=== PATIENT | female | born 1960 | race Caucasian/White ===

== ENCOUNTER → 2020-06-20 13:13 | Outpatient (BNVA) | payer OTHER, SELFPAY | PROVIDERS: PCP Family Medicine; Visit Provider Urology | DX: N30.00 Acute cystitis without hematuria (principal); N39.41 Urge incontinence; N39.3 Stress incontinence (female) (male) | CPT/HCPCS: 51798; 81002; 99212 ==

== ENCOUNTER 2020-06-26 13:56 | Outpatient (REF) | payer OTHER, SELFPAY ==
--- NOTE | 2020-06-26 | MM_ITS ---
EXAMINATION: MM SCREENING DIGITAL BREAST TOMOSYNTHESIS, BILATERAL CLINICAL INFORMATION: Screening. Asymptomatic. The lifetime risk of breast cancer based on the Tyrer-Cuzick Model is 5%. COMPARISON: Mammography: 02/15/2019, 01/17/2018, 04/29/2016, 09/13/2012 TECHNIQUE: Digital breast tomosynthesis is performed in both the craniocaudal and mediolateral oblique views along with computer-aided detection (CAD). Synthesized 2D images are generated from the tomosynthesis. FINDINGS: The breasts are heterogeneously dense, which may obscure small masses (ACR BI-RADS breast composition Category c). There are no significant masses, abnormal calcifications, or other abnormalities. There is a chronic smooth macrolobulated nodule retroareolar upper outer left breast again noted. No developing density. No significant changes from prior exams. MM/MM tomosynthesis screening BI IMPRESSION: No significant changes from prior studies. ASSESSMENT: BI-RADS 2: Benign RECOMMENDATION: Routine annual mammography screening. This patient's information was entered into a reminder system with a target due date for their next mammogram.
== END 2020-06-26 13:57 | disposition home or self-care (01) ==
LOC: HO.MAMMO 13:56
PROVIDERS: PCP Family Medicine; Visit Provider Family Medicine
DX: Z12.31 Encounter for screening mammogram for malignant neoplasm of breast (principal)
CPT/HCPCS: 77063; 77067

== ENCOUNTER → 2020-06-27 13:56 | Outpatient (BNVA) | payer OTHER, SELFPAY | PROVIDERS: PCP Family Medicine; Visit Provider Urology | DX: N39.41 Urge incontinence (principal); N39.3 Stress incontinence (female) (male) | CPT/HCPCS: 81002; 99212 ==

== ENCOUNTER 2020-09-10 11:15 | Outpatient (REF) | payer OTHER, SELFPAY ==
[2020-09-10 12:12] LABS: Alanine Aminotransferase 19 U/L (0-31); Anion Gap 12 (12-20); Aspartate Amino Transferase 18 U/L (5-31); Carbon Dioxide 23 mmol/L (22-29); Chloride 99 mmol/L (96-108); Potassium 4.8 mmol/L (3.3-5.1); Sodium 129 mmol/L (135-145)
[2020-09-10 12:34] LABS: Free T4 (Free Thyroxine) 0.94 ng/dL (0.71-1.85); Thyroid Stimulating Hormone 0.51 uIU/mL (0.32-4.0)
[2020-09-10 12:55] LABS: Osmolality, Serum 271 mosm/kg (281-305)
== END 2020-09-10 11:16 | disposition home or self-care (01) ==
LOC: HO.LAB 11:15
PROVIDERS: PCP Family Medicine; Visit Provider Family Medicine
DX: E78.1 Pure hyperglyceridemia (principal); E03.9 Hypothyroidism, unspecified; E78.00 Pure hypercholesterolemia, unspecified; Z79.899 Other long term (current) drug therapy
CPT/HCPCS: 36415; 80051; 82550; 83930; 84439; 84443; 84450; 84460

== ENCOUNTER 2021-01-16 14:59 | Outpatient (REF) | payer OTHER, SELFPAY ==
[2021-01-16 16:00] LABS: Alanine Aminotransferase 15 U/L (0-31); Anion Gap 15 (12-20); Blood Urea Nitrogen 7 mg/dL (9-16); Carbon Dioxide 22 mmol/L (22-29); Chloride 96 mmol/L (96-108); Estimated Glomerular Filt Rate > 60; Potassium 4.5 mmol/L (3.3-5.1); Sodium 128 mmol/L (135-145)
[2021-01-16 16:21] LABS: Free T4 (Free Thyroxine) 1.01 ng/dL (0.71-1.85); Thyroid Stimulating Hormone 1.14 uIU/mL (0.32-4.0)
== END 2021-01-16 15:00 | disposition home or self-care (01) ==
LOC: HO.LAB 14:59
PROVIDERS: PCP Family Medicine; Visit Provider Family Medicine
DX: I10 Essential (primary) hypertension (principal); E03.9 Hypothyroidism, unspecified; E78.00 Pure hypercholesterolemia, unspecified; Z79.899 Other long term (current) drug therapy
CPT/HCPCS: 36415; 80051; 82550; 82565; 84439; 84443; 84460; 84520

== ENCOUNTER 2021-09-26 14:40 | Emergency (ER) | payer OTHER, SELFPAY ==
--- NOTE | ~2021-09-26 | XR_ITS ---
EXAMINATION: XR CHEST CLINICAL INFORMATION: Cough. COMPARISON: Most recent chest radiograph dated 03/13/2019. TECHNIQUE: 2 views of the chest were obtained. FINDINGS: No new airspace consolidation. No pleural effusion or pneumothorax. Stable cardiomediastinal silhouette. Chronic wedge compression deformity within the mid thoracic spine, unchanged when compared to the radiographs from 2019. No acute osseous abnormality. XR/XR chest 2V IMPRESSION: No acute cardiopulmonary findings.
[2021-09-26 14:46] VITALS: BP 130/80; BP 151/89; PULSE 70; RESP 14; TEMP 36.6; O2SAT 95; O2SAT 97; BMI 36.1
[2021-09-26 14:59] VITALS: O2SAT 95
--- NOTE | 2021-09-26 15:18 | ED.SOB ---
HPI - SOB/Dyspnea General Chief Complaint: Upper Respiratory Symptoms Stated Complaint: diff breathing Time Seen by Provider: 09/26/21 15:11 Source: patient and EMS Mode of arrival: EMS Limitations: no limitations History of Present Illness HPI Narrative: 60-year-old female with a past medical history of asthma, COPD, hyperlipidemia, alcoholism, thyroid disease, depression, psychiatric illness who reports that she smokes nicotine and marijuana daily presenting to the ED via EMS with complaints of chills, fatigue, malaise, productive cough with different colored sputum production, nasal congestion/rhinorrhea, sinus pain, sore throat/postnasal drip, pain to the chest with coughing x4 days worse today. Denies any measured fevers, dizziness, headaches, neck pain/stiffness, loss of taste or smell, ear pain, dyspnea on exertion, orthopnea, palpitations, paresthesias, nausea/vomiting/diarrhea/constipation, black or bloody stools, abdominal pain, back pain, dysuria, hematuria, abnormal vaginal discharge, lower extremity edema or calf tenderness, recent travel or sick contacts or any other symptoms complaints or concerns at this time. MD elicited complaint: shortness of breath, cough and pain with inspiration Pertinent past history: COPD Onset (ago): day(s) (4) Timing: constant and progressively worsening Severity: moderate Exacerbating factors: coughing, inspiration and talking Relieving factors: nothing Known history of: COPD Associated symptoms: pain with inspiration, cough, wheezing and sputum production Treatment prior to arrival: none Related Data Home oxygen amount: none Previous Rx's Medication Instructions Recorded ciprofloxacin HCl 500 mg tablet 500 mg PO BID #14 tab 06/20/20 (Cipro) oxybutynin chloride 15 mg 30 mg PO DAILY #60 tab 02/12/21 tablet,extended release 24 hr albuterol sulfate 0.63 mg/3 mL 0.63 mg (3 mL) INHALATION QID PRN 09/26/21 solution for nebulization #75 ml albuterol sulfate 90 mcg/actuation 1 inh INHALATION QID PRN #8.5 g 09/26/21 aerosol inhaler guaifenesin 200 mg/5 mL oral liquid 200 mg (5 mL) PO Q4H PRN #118 ml 09/26/21 nebulizers (AeroEclipse II #1 ea 09/26/21 Nebulizer) prednisone 20 mg tablet 40 mg PO DAILY 5 Days #10 tab 09/26/21 Allergies Allergy/AdvReac Type Severity Reaction Status Date / Time gabapentin Allergy Unknown Unknown Verified 09/26/21 14:53 codeine [CODEINE] AdvReac Intermediate NAUSEA & Verified 09/26/21 14:53 VOMITING nicotine AdvReac Itching Verified 09/26/21 14:53 Review of Systems Review of Systems: Constitutional : + chills/fatigue/malaise, No Weight loss, No Fever, No Night Sweats ENT/Mouth : + nasal congestion/rhinorrhea/sore throat/sinus pressure/pain, No Hearing loss, No Ear Pain, No Hoarseness, No Swallowing Difficulty Eyes: No Eye Pain, No Swelling, No Redness, No Foreign Body, No Discharge, No Vision Changes Cardiovascular : No Chest Pain, No SOB, No Dyspnea on Exertion, No Orthopnea, No Edema, No Palpitations Respiratory : + Cough, + Sputum, No Wheezing, No Smoke Exposure, No Dyspnea Gastrointestinal : No Nausea, No Vomiting, No Diarrhea, No Constipation, No abdominal Pain, No Hematochezia, No Melena Genitourinary : no irregular bleeding, No Dysuria, No Urinary Frequency, No Hematuria, No Urinary Incontinence, No Urgency, No Flank Pain, No Urinary Flow Changes, No Hesitancy Musculoskeletal : No joint pain, + Myalgias, No Joint Swelling Skin : No Skin Lesions, No rash Neuro : No Weakness, No Numbness, No Paresthesias, No Loss of Consciousness, No Dizziness, No Headache Psych : No Anxiety/Panic, No Depression, No SI/HI/AH/VH, No Social Issues, Heme/Lymph: No Bruising, No Bleeding,No Lymphadenopathy Endocrine : No Polyuria, No Polydipsia, No Temperature Intolerance Yes all other systems are reviewed and are negative [facility] Past Medical History Attestation statement: The following information was validated with the patient. Medical History DOMINIK (stress urinary incontinence, female) Urge incontinence UTI (urinary tract infection) Social History Social History Alcohol intake: current Alcohol intake frequency: holidays/special occasions only Patient Tobacco Use Status: Current everyday Tobacco user Use of substances other than those prescribed or required for medical reasons: Yes Substance Use Type: Marijuana Advance Directives: Yes Advance Directives Information Provided: No Advance Directives on File: No Physical Exam Vital Signs: Vital Signs: Last Vital Signs Temp 97.9 F 09/26/21 16:28 Pulse 78 09/26/21 16:28 Resp 20 09/26/21 16:28 BP 133/65 09/26/21 16:28 Pulse Ox 95 09/26/21 16:28 BMI result Body Mass Index 36.1 vital signs have been reviewed as normal and appeared to be correct. Blood pressure 151/89. Heart rate normal. Respiration rate normal. Temperature normal. Oxygen saturation 95. Appearance: Alert. Oriented X3. Mild respiratory distress otherwise no other acute distress Head: Normal external exam. Normocephalic. Atraumatic. Eyes: PERRLA. EOMI. Conjunctiva and sclera normal. Eyelids normal. ENT: EAC normal. TM's Normal. No septal hematoma noted. No hemotympanum noted. Pharynx normal. Uvula midline. Moist mucous membranes. No lesions/ulcerations or masses noted on the tongue. Normal voice. No trismus noted. No drooling noted. No muffled voice noted. Neck: Normal inspection. Neck supple. FROM. No adenopathy. Thyroid Normal. No tracheal deviation noted. No crepitus is noted. No meningeal signs. No neck mass noted. No signs of trauma noted. CVS: Normal heart rate and rhythm. Heart sound normal. Pulses normal throughout. No murmurs/rales/gallops. Respiratory: Mild respiratory distress with decreased breath sounds and pain with inspiration. Otherwise no wheezes/rales/rhonchi noted at this time. Chest nontender. No crepitus is noted. No signs of trauma noted. No accessory muscle usage noted or decreased air movement noted. Abdomen: Soft and nontender. Bowel sounds normal in all 4 quadrants. No distention noted. No organomegaly noted. No visible injury noted. Back: Full range of motion noted. Nontender. No signs of trauma. Patient neuro intact bilaterally and distally on all 4 extremities. Patient's reflexes intact bilaterally and distally on all 4 extremities. No rashes/lesion/induration/fluctuance or signs of infection noted. Skin: Skin warm and dry. Normal skin color. Normal skin turgor. No rashes/lesions/lacerations noted. Extremities: No lower extremity edema. No calf tenderness is noted. Extremities exhibit normal range of motion and nontender. Neuro: Oriented X 3. No motor deficit. No sensory deficit. Reflexes normal. Normal steady gait. No focal neuro deficits noted. CN's II-XII intact bilaterally? Vascular: + radial pulses/+ 2 distal pedal pulses/+2 dorsalis pedis b/l. Normal cap refill. No cyanosis noted to upper extremity nails and lower extremity toes nails. Course Course Course Narrative: 15:15pm - 60-year-old female with a past medical history of asthma, COPD, hyperlipidemia, alcoholism, thyroid disease, depression, psychiatric illness who reports that she smokes nicotine and marijuana daily presenting to the ED via EMS with complaints of chills, fatigue, malaise, productive cough with different colored sputum production, nasal congestion/rhinorrhea, sinus pain, sore throat/postnasal drip, pain to the chest with coughing x4 days worse today. Plan: Labs, UA, UHCG, COVID swab, influenza swab, chest x-ray, EKG. Provide a breathing treatment and 125 mg of Solu-Medrol re-evaluate. Reevaluation(s) Reevaluation #1: - labs return patient with a white blood cell count of 4000. Sodium 127 which is chronic similar compared to baseline. Chloride 94. BUN 5. Otherwise all other labs are within normal limits. Patient positive for influenza negative for COVID. - chest x-ray within normal limits no acute processes noted - patient reports she feels much better at this time. - therefore at this time will DC home with symptomatic treatment instructions return if any new or worsening symptoms to follow up with primary care provider although patient not a candidate for Tamiflu as her symptoms have been present for at least 4 days. Patient understands agrees with this plan. Time: 16:29 MDM - SOB/Dyspnea Medical Records Attestation: I reviewed the patient's medical records. Lab Data Attestation: I reviewed the patient's lab results. Result diagrams: 09/26/21 15:38 09/26/21 15:38 Labs: Lab Results 09/26/21 09/26/21 09/26/21 Range/Units 15:38 15:38 15:38 WBC 4.5 L (4.8-10.8) X10*3/uL RBC 4.46 (4.20-5.50) X10*6/uL Hgb 13.3 (12.0-16.0) g/dl Hct 37.4 (37.0-47.0) % MCV 83.9 (80.0-98.0) fL MCH 29.8 (27.0-33.0) pg MCHC 35.6 H (31.0-35.0) g/dl RDW 13.0 (11.0-16.0) % Plt Count 241 (160-400) X10*3/uL MPV 8.8 L (9.4-12.3) fL Immature Gran % (Auto) 0.2 (0.0-0.4) % Neut % (Auto) 36.8 L (45-73) % Lymph % (Auto) 52.8 H (20-40) % Glasscock % (Auto) 8.9 (2-11) % Eos % (Auto) 1.1 (0-4) % Baso % (Auto) 0.2 (0-2) % Lymph # (Auto) 2.4 (1.2-4.9) X10*3/uL Glasscock # (Auto) 0.4 (0.1-1.2) X10*3/uL Eos # (Auto) 0.1 (0.0-0.4) X10*3/uL Baso # (Auto) 0.0 (0.0-0.2) X10*3/uL Abs Immat Gran (auto) 0.01 (0.00-0.03) X10*3/uL Absolute Neuts (auto) 1.6 L (2.0-8.3) x10*3/uL Absolute Nucleated RBC 0.000 (0.0-0.012) X10*3/uL Nucleated RBC % (auto) 0.0 (0.0-0.2) /100WBC Sodium (135-145) mmol/L Potassium (3.3-5.1) mmol/L Chloride (96-108) mmol/L Carbon Dioxide (22-29) mmol/L Anion Gap (12-20) BUN (9-16) mg/dL Creatinine (0.5-1.4) mg/dL Estim Creat Clear Calc Estimated GFR Random Glucose (60-115) mg/dL Calcium (8.4-10.2) mg/dL Magnesium (1.6-2.6) mg/dL Total Bilirubin (0.0-1.0) mg/dL AST (5-31) U/L ALT (0-31) U/L Alkaline Phosphatase (39-117) U/L Total Protein (6.5-8.0) g/dL Albumin (3.5-5.0) g/dL COVID-19 (PETRA) Negative (Negative) COVID-19 Clin Com See Note Influenza Type A (STEVEN) Positive A (Negative) Influenza Type B (STEVEN) Negative (Negative) Influenza A & B Note See Note 09/26/21 Range/Units 15:38 WBC (4.8-10.8) X10*3/uL RBC (4.20-5.50) X10*6/uL Hgb (12.0-16.0) g/dl Hct (37.0-47.0) % MCV (80.0-98.0) fL MCH (27.0-33.0) pg MCHC (31.0-35.0) g/dl RDW (11.0-16.0) % Plt Count (160-400) X10*3/uL MPV (9.4-12.3) fL Immature Gran % (Auto) (0.0-0.4) % Neut % (Auto) (45-73) % Lymph % (Auto) (20-40) % Glasscock % (Auto) (2-11) % Eos % (Auto) (0-4) % Baso % (Auto) (0-2) % Lymph # (Auto) (1.2-4.9) X10*3/uL Glasscock # (Auto) (0.1-1.2) X10*3/uL Eos # (Auto) (0.0-0.4) X10*3/uL Baso # (Auto) (0.0-0.2) X10*3/uL Abs Immat Gran (auto) (0.00-0.03) X10*3/uL Absolute Neuts (auto) (2.0-8.3) x10*3/uL Absolute Nucleated RBC (0.0-0.012) X10*3/uL Nucleated RBC % (auto) (0.0-0.2) /100WBC Sodium 127 L (135-145) mmol/L Potassium 4.0 (3.3-5.1) mmol/L Chloride 94 L (96-108) mmol/L Carbon Dioxide 22 (22-29) mmol/L Anion Gap 15 (12-20) BUN 5 L (9-16) mg/dL Creatinine 0.71 (0.5-1.4) mg/dL Estim Creat Clear Calc 114.8 Estimated GFR > 60 Random Glucose 114 (60-115) mg/dL Calcium 9.8 (8.4-10.2) mg/dL Magnesium 1.8 (1.6-2.6) mg/dL Total Bilirubin 0.3 (0.0-1.0) mg/dL AST 22 (5-31) U/L ALT 20 (0-31) U/L Alkaline Phosphatase 110 (39-117) U/L Total Protein 7.0 (6.5-8.0) g/dL Albumin 4.2 (3.5-5.0) g/dL COVID-19 (PETRA) (Negative) COVID-19 Clin Com Influenza Type A (STEVEN) (Negative) Influenza Type B (STEVEN) (Negative) Influenza A & B Note Imaging Data Chest x-ray: Attestation: I personally reviewed and interpreted this imaging study as follows: Radiologist's impression: FINDINGS: No new airspace consolidation. No pleural effusion or pneumothorax. Stable cardiomediastinal silhouette. Chronic wedge compression deformity within the mid thoracic spine, unchanged when compared to the radiographs from 2019. No acute osseous abnormality. XR/XR chest 2V IMPRESSION: No acute cardiopulmonary findings. ECG Data Attestation: I personally reviewed and interpreted this ECG as follows: ECG interpretation date: 09/26/21 ECG interpretation time: 16:34 Interpretation: Normal sinus rhythm with ventricular rate of 78 with a normal MA interval normal QRS duration with mild increasing QT at 496 milliseconds otherwise no acute ischemic change are noted. Similar compared to prior EKG on October 12, 2012 Critical Care Time Critical Care Time Critical Care Time: Yes Total Critical Care Time: 60 Attestation: I personally attest to this time spent taking care of the patient Discharge Plan Discharge Clinical Impression: Influenza A, Acute exacerbation of COPD with asthma Patient Disposition: Home, Self-Care Instructions: Influenza (ED), Flu Shot (Vaccine) for Adults (ED), Droplet Precautions (ED) Prescriptions: New (DME) AeroEclipse II Nebulizer Misc See Rx Instructions .ROUTE .MEDSUPPLY Qty: 1 0RF Rx Instructions: As directed albuterol sulfate 0.63 mg/3 mL solution for nebulization 0.63 mg inhalation QID PRN (Reason: shortness of breath or wheezing) Qty: 75 0RF albuterol sulfate 90 mcg/actuation HFA aerosol inhaler 1 inh inhalation QID PRN (Reason: shortness of breath or wheezing) Qty: 8.5 0RF prednisone 20 mg tablet 40 mg PO DAILY 5 Days Qty: 10 0RF guaifenesin 200 mg/5 mL liquid 200 mg PO Q4H PRN (Reason: cough) Qty: 118 0RF No Action oxybutynin chloride 15 mg tablet extended release 24 hr 30 mg PO DAILY Qty: 60 6RF ciprofloxacin HCl [Cipro] 500 mg tablet 500 mg PO BID Qty: 14 0RF Referrals: Doyle Lester MD [Primary Care Provider] - 2 days Print Language: Lao
--- NOTE | 2021-09-26 15:22 | ECG_ITS ---
Test Reason : DIFFICULTY BREATHING Blood Pressure : / mmHG Vent. Rate : 078 BPM Atrial Rate : 078 BPM P-R Int : 168 ms QRS Dur : 104 ms QT Int : 460 ms P-R-T Axes : 060 044 044 degrees QTc Int : 524 ms Artifact in tracing Normal sinus rhythm Prolonged QTc When compared with ECG of 12-OCT-2012 23:11, QT has lengthened Referred By: Jessica Rocha Electronically Signed By:ANTIONETTE MICHEL
[2021-09-26 15:40] VITALS: BP 141/91; PULSE 66; RESP 14; O2SAT 97
[2021-09-26] MEDS: Albuterol Sulfate (0.083%) 2.5 MG/3 ML VIAL.NEB 10 MG INHALE (15:41)
[2021-09-26 15:42] VITALS: PULSE 65; RESP 20; O2SAT 98
[2021-09-26 15:45] LABS: MANUAL DIFF FLAG NO
[2021-09-26 15:47] LABS: Basophils Percent Auto 0.2 % (0-2); Eosinophils Absolute Auto 0.1 X10*3/uL (0.0-0.4); Eosinophils Percent Auto 1.1 % (0-4); Hematocrit 37.4 % (37.0-47.0); Hemoglobin 13.3 g/dl (12.0-16.0); Imm Gran Abs Auto 0.01 X10*3/uL (0.00-0.03); Imm Gran Pct Auto 0.2 % (0.0-0.4); Lymphocytes Absolute Auto 2.4 X10*3/uL (1.2-4.9); Lymphocytes Percent Auto 52.8 % (20-40); Mean Corpuscular HGB Conc 35.6 g/dl (31.0-35.0); Mean Corpuscular Hemoglobin 29.8 pg (27.0-33.0); Mean Corpuscular Volume 83.9 fL (80.0-98.0); Mean Platelet Volume 8.8 fL (9.4-12.3); Monocytes Absolute Auto 0.4 X10*3/uL (0.1-1.2); Monocytes Percent Auto 8.9 % (2-11); Neutrophils Absolute Auto 1.6 x10*3/uL (2.0-8.3); Neutrophils Percent Auto 36.8 % (45-73); Platelet Count 241 X10*3/uL (160-400); Red Blood Count 4.46 X10*6/uL (4.20-5.50); White Blood Count 4.5 X10*3/uL (4.8-10.8)
[2021-09-26] MEDS: methylPREDNISolone Sod Succ 125 MG/2 ML VIAL IVPUSH (15:52)
[2021-09-26 16:09] LABS: COVID-19 Test Negative (Negative); IDNOW Serial# 16C4AD1C
[2021-09-26 16:10] LABS: Alanine Aminotransferase 20 U/L (0-31); Albumin Level 4.2 g/dL (3.5-5.0); Alkaline Phosphatase 110 U/L (39-117); Anion Gap 15 (12-20); Aspartate Amino Transferase 22 U/L (5-31); Bilirubin Total 0.3 mg/dL (0.0-1.0); Blood Urea Nitrogen 5 mg/dL (9-16); Calcium 9.8 mg/dL (8.4-10.2); Carbon Dioxide 22 mmol/L (22-29); Chloride 94 mmol/L (96-108); Creatinine Clr Calc Pharmacy 114.8; Estimated Glomerular Filt Rate > 60; Glucose Random 114 mg/dL (60-115); Influenza A Positive (Negative); Influenza B2 Negative (Negative); Magnesium 1.8 mg/dL (1.6-2.6); Sodium 127 mmol/L (135-145)
[2021-09-26 16:28] VITALS: BP 133/65; PULSE 78; RESP 20; TEMP 36.6; O2SAT 95
== END 2021-09-26 17:00 | disposition home or self-care (01) ==
PROVIDERS: Physician Assistant Medical; Emergency Provider Emergency Medicine; PCP Family Medicine
DX: J10.1 Influenza due to other identified influenza virus with other respiratory manifestations (principal); J44.1 Chronic obstructive pulmonary disease with (acute) exacerbation; F12.90 Cannabis use, unspecified, uncomplicated; F17.200 Nicotine dependence, unspecified, uncomplicated; Z20.822 Contact with and (suspected) exposure to COVID-19
CPT/HCPCS: 36415; 71046; 80053; 83735; 85025; 87502; 87635; 93005; 94640; 96374; 99285; 99291; J2930

== ENCOUNTER 2021-10-21 14:03 | Outpatient (REF) | payer OTHER, SELFPAY ==
--- NOTE | ~2021-10-21 | MM_ITS ---
EXAMINATION: MM SCREENING DIGITAL BREAST TOMOSYNTHESIS, BILATERAL CLINICAL INFORMATION: Screening. Asymptomatic. The lifetime risk of breast cancer based on the Tyrer-Cuzick Model is 4%. COMPARISON: Mammography: 06/26/2020, 02/15/2019, 01/17/2018, 03/18/2015 TECHNIQUE: Digital breast tomosynthesis is performed in both the craniocaudal and mediolateral oblique views along with computer-aided detection (CAD). Synthesized 2D images are generated from the tomosynthesis. FINDINGS: The breasts are heterogeneously dense, which may obscure small masses (ACR BI-RADS breast composition Category c). Parenchymal pattern is similar to prior studies and there is no interval mass or architectural abnormality or developing density. No abnormal calcifications. No significant changes. The axilla and skin contours are unremarkable. MM/MM tomosynthesis screening BI IMPRESSION: No mammographic evidence of malignancy. ASSESSMENT: BI-RADS 1: Negative RECOMMENDATION: Routine annual mammography screening. This patient's information was entered into a reminder system with a target due date for their next mammogram.
== END 2021-10-21 14:04 | disposition home or self-care (01) ==
LOC: HO.MAMMO 14:03
PROVIDERS: PCP Family Medicine; Visit Provider Family Medicine
DX: Z12.31 Encounter for screening mammogram for malignant neoplasm of breast (principal)
CPT/HCPCS: 77063; 77067

== ENCOUNTER 2021-11-03 14:11 | Outpatient (REF) | payer OTHER, SELFPAY ==
[2021-11-03 15:25] LABS: Thyroid Stimulating Hormone 0.64 uIU/mL (0.32-4.0)
== END 2021-11-03 14:12 | disposition home or self-care (01) ==
LOC: HO.LAB 14:11
PROVIDERS: PCP Family Medicine; Visit Provider Family Medicine
DX: E03.9 Hypothyroidism, unspecified (principal)
CPT/HCPCS: 36415; 84439; 84443

== ENCOUNTER 2021-11-05 12:59 | Outpatient (REF) | payer OTHER, SELFPAY ==
--- NOTE | 2021-11-05 | PFT_ITS ---
INDICATION: Shortness of breath. SPIROMETRY: FEV1 to FVC pre bronchodilator 69%, post bronchodilator 72% with an FEV1 of 2.47 L, which is 82% predicted and an FVC of 3.42 L, which is 89% predicted. The [id number] decreased to 56% predicted. Maximum voluntary ventilation only 58% predicted. LUNG VOLUMES: Total lung capacity 96% predicted with a residual volume 105% predicted. DIFFUSION CAPACITY: DLCO of 56% predicted. COMPARISONS: None. INTERPRETATION: There appears to be a partial reversible obstructive ventilatory defect suggesting a diagnosis of asthma-COPD overlap syndrome. The patient did not have a significant response to bronchodilators noted. Does have significant small airways disease and has a moderate decrease in maximum voluntary ventilation secondary to likely deconditioning. Lung volumes are within normal limits, and the patient does have a moderate diffusion impairment. Consider underlying parenchymal lung conditions and/or pulmonary vascular conditions. The diffusion capacity should also be corrected for hemoglobin. Clinical correlation warranted. MD RADHA Huff/MODL / [id number]
== END 2021-11-05 13:00 | disposition home or self-care (01) ==
LOC: HO.RESP 12:59
PROVIDERS: PCP Family Medicine; Visit Provider Family Medicine
DX: R06.02 Shortness of breath (principal); F17.200 Nicotine dependence, unspecified, uncomplicated
CPT/HCPCS: 94060; 94727; 94729

== ENCOUNTER → 2021-12-10 14:09 | Outpatient (BNVA) | payer OTHER, SELFPAY | PROVIDERS: PCP Family Medicine | DX: N39.41 Urge incontinence (principal); N39.3 Stress incontinence (female) (male) | CPT/HCPCS: 51798; 99202 ==

== ENCOUNTER 2022-04-20 11:27 | Outpatient (REF) | payer OTHER, SELFPAY ==
--- NOTE | ~2022-04-20 | XR_ITS ---
EXAMINATION: XR KNEE, RIGHT XR KNEE, LEFT CLINICAL INFORMATION: Bilateral knee pain. COMPARISON: None TECHNIQUE: AP, tunnel, lateral, and sunrise views of the right and left knee. FINDINGS: RIGHT KNEE: No acute fracture or dislocation. Minimal medial compartment joint space narrowing. Tiny tricompartmental marginal osteophytes. No osseous erosion. Trace joint effusion. No abnormal soft tissue calcification. LEFT KNEE: Minimal medial compartment joint space narrowing. Tiny medial and patellofemoral compartment marginal osteophytes. No osseous erosion. No fracture or dislocation. No significant joint effusion. Superior patellar enthesophyte. XR/XR knee LT 4V IMPRESSION: Right knee: Minimal tricompartmental osteoarthritis. Trace joint effusion. Left knee: Minimal medial and patellofemoral compartment osteoarthritis.
--- NOTE | ~2022-04-20 | XR_ITS ---
EXAMINATION: XR KNEE, RIGHT XR KNEE, LEFT CLINICAL INFORMATION: Bilateral knee pain. COMPARISON: None TECHNIQUE: AP, tunnel, lateral, and sunrise views of the right and left knee. FINDINGS: RIGHT KNEE: No acute fracture or dislocation. Minimal medial compartment joint space narrowing. Tiny tricompartmental marginal osteophytes. No osseous erosion. Trace joint effusion. No abnormal soft tissue calcification. LEFT KNEE: Minimal medial compartment joint space narrowing. Tiny medial and patellofemoral compartment marginal osteophytes. No osseous erosion. No fracture or dislocation. No significant joint effusion. Superior patellar enthesophyte. XR/XR knee RT 4V IMPRESSION: Right knee: Minimal tricompartmental osteoarthritis. Trace joint effusion. Left knee: Minimal medial and patellofemoral compartment osteoarthritis.
== END 2022-04-20 11:28 | disposition home or self-care (01) ==
LOC: HO.XRAY 11:27
PROVIDERS: PCP Family Medicine; Visit Provider Family Medicine
DX: M25.561 Pain in right knee (principal); M25.562 Pain in left knee
CPT/HCPCS: 73564

== ENCOUNTER 2022-05-12 12:28 | Outpatient (REF) | payer OTHER, SELFPAY ==
[2022-05-12 15:46] LABS: Alanine Aminotransferase 15 U/L (0-31); Anion Gap 13 (12-20); Aspartate Amino Transferase 15 U/L (5-31); Blood Urea Nitrogen 9 mg/dL (9-16); Carbon Dioxide 25 mmol/L (22-29); Chloride 96 mmol/L (96-108); Estimated Glomerular Filt Rate > 60; Free T4 (Free Thyroxine) 1.16 ng/dL (0.71-1.85); Potassium 4.8 mmol/L (3.3-5.1); Sodium 129 mmol/L (135-145)
== END 2022-05-12 12:29 | disposition home or self-care (01) ==
LOC: HO.LAB 12:28
PROVIDERS: PCP Family Medicine; Visit Provider Family Medicine
DX: E78.00 Pure hypercholesterolemia, unspecified (principal); E03.9 Hypothyroidism, unspecified; Z79.899 Other long term (current) drug therapy
CPT/HCPCS: 36415; 80051; 82550; 82565; 84439; 84443; 84450; 84460; 84520

== ENCOUNTER 2022-08-29 09:50 | Emergency (ER) | payer OTHER, SELFPAY ==
--- NOTE | ~2022-08-29 | CT_ITS ---
EXAMINATION: CT ABDOMEN AND PELVIS WITH CONTRAST CLINICAL INFORMATION: Abdominal pain COMPARISON: Previous CT of the abdomen and pelvis September 2012 and pelvic ultrasound October 2018 TECHNIQUE: Multidetector volumetric images were obtained from the superior aspect of the liver through the pubic symphysis following administration 85 mL of Omnipaque 350 intravenous contrast. Sagittal and coronal reformatted images were obtained on the technologist's workstation. Oral contrast: Yes This CT examination was performed using dose optimization techniques as appropriate, variously including the following: *Automated exposure control *Adjustment of mA and/or kV according to patient size (this includes techniques or standardized protocols for targeted exams where dose is matched to indication/reason for exam; i.e. extremities or head) *Use of iterative reconstruction technique DLP: 910 mGy-cm FINDINGS: LUNG BASES: Stable small bilateral pulmonary nodules from 2012. LIVER, GALLBLADDER, AND BILIARY TREE: The liver is normal in size, shape, and attenuation. No focal hepatic lesion or biliary ductal dilatation is present. The gallbladder is unremarkable with no evidence of radiopaque gallstones, gallbladder wall thickening, or obvious pericholecystic inflammatory changes. PANCREAS: Unremarkable. SPLEEN: Unremarkable. ADRENAL GLANDS: Unremarkable. KIDNEYS AND URETERS: Mild dilatation of the right renal pelvis and ureter. No stone seen. . Small right renal cyst. No imaging follow-up recommended. BLADDER: Unremarkable. GASTROINTESTINAL TRACT: Question mild wall thickening of the distal colon/mild colitis versus underdistention. Small and large bowel is otherwise normal. The appendix is normal. The stomach is normal. ABDOMINAL WALL: No significant hernia is appreciated. LYMPH NODES: Normal. VASCULAR: Severe atherosclerotic disease. No aneurysm. PELVIC VISCERA: Unremarkable. OSSEOUS STRUCTURES: Degenerative changes of the spine. CT/CT abdomen pelvis w IV con IMPRESSION: Question mild colitis of the distal colon versus underdistention. Fullness of the right renal pelvis and ureter. No stone seen. Fleischner guidelines were followed.
[2022-08-29 09:56] VITALS: BP 134/82; PULSE 73; O2SAT 98; BMI 20.5
--- NOTE | 2022-08-29 10:01 | ED.NAVMDI ---
HPI - Nausea/Vomiting/Diarrhea General Chief complaint: Nausea/Vomiting/Diarrhea Stated complaint: Diarrhea per EMS Source: patient and EMS Mode of arrival: EMS Limitations: no limitations History of Present Illness HPI Narrative: This is a 61 years old female with history of bipolar disorder , PTSD, anxiety presented to the ED complaining of diarrhea and nausea since last night. Denies any fever chills vomiting. She states that she did not take care anxiety medication this morning. MD elicited complaint: nausea, vomiting and diarrhea Onset (ago): day(s) (1) Description of diarrhea: watery Associated abdominal pain: Yes Location of pain: none Quality: cramping Relieving factors: none Related Data Home Medications Medication Instructions Recorded Confirmed clonazepam 1 mg tablet 1 mg PO TID PRN 12/10/21 diltiazem HCl 180 mg 180 mg PO DAILY 12/10/21 capsule,extended release 24 hr fluoxetine 20 mg capsule 20 mg PO DAILY 12/10/21 fluoxetine 40 mg capsule 40 mg PO DAILY 12/10/21 fluticasone propionate 50 spray intranasal 12/10/21 mcg/actuation nasal spray,suspension levothyroxine 125 mcg tablet 125 mcg PO DAILY 12/10/21 (Synthroid) loratadine 10 mg tablet 10 mg PO DAILY 12/10/21 olanzapine 10 mg tablet 10 mg PO BEDTIME 12/10/21 olanzapine 2.5 mg tablet 2.5 mg PO BEDTIME 12/10/21 omeprazole 20 mg capsule,delayed 20 mg PO QPM 12/10/21 release oxcarbazepine 300 mg tablet 300 mg PO DAILY 12/10/21 oxcarbazepine 600 mg tablet 0 mg PO 12/10/21 simvastatin 20 mg tablet 20 mg PO BEDTIME 12/10/21 trazodone 50 mg tablet mg PO 12/10/21 Previous Rx's Medication Instructions Recorded albuterol sulfate 0.63 mg/3 mL 0.63 mg (3 mL) inhalation QID PRN 09/26/21 solution for nebulization shortness of breath or wheezing #75 mL albuterol sulfate 90 mcg/actuation 1 inh inhalation QID PRN shortness 09/26/21 aerosol inhaler of breath or wheezing #8.5 grams guaifenesin 200 mg/5 mL oral liquid 200 mg (5 mL) PO Q4H PRN cough 09/26/21 #118 mL nebulizers (AeroEclipse II #1 ea 09/26/21 Nebulizer) prednisone 20 mg tablet 40 mg PO DAILY rash 5 days #10 tabs 09/26/21 oxybutynin chloride 5 mg 15 mg PO DAILY 90 days #270 tabs 04/28/22 tablet,extended release 24 hr solifenacin 10 mg tablet (Vesicare) 10 mg PO DAILY 30 days #30 tabs 06/01/22 Allergies Allergy/AdvReac Type Severity Reaction Status Date / Time gabapentin Allergy Unknown Unknown Verified 12/10/21 14:31 codeine [CODEINE] AdvReac Intermediate NAUSEA & Verified 12/10/21 14:31 VOMITING nicotine AdvReac Itching Verified 12/10/21 14:31 Review of Systems Constitutional: Constitutional: Reports no additional constitutional complaints ENT: Reports system reviewed and no additional complaints, except as documented Gastrointestinal: Gastrointestinal: Reports diarrhea and Denies vomiting Allergic/Immunologic: Allergic/Immunologic: Reports no additional allergic/immunologic complaints [facility] Past Medical History [facility] Narrative: PTSD/bipolar/anxiety Medical History DOMINIK (stress urinary incontinence, female) Urge incontinence UTI (urinary tract infection) Social History Social History Alcohol intake: never Patient Tobacco Use Status: Current everyday Tobacco user Smoked in Last 30 Days: No Substance Use Type: Marijuana Advance Directives: No Advance Directives Information Provided: Yes Physical Exam Vital Signs: Vital Signs: Last Vital Signs Temp 97.6 F 08/29/22 10:34 BMI result Body Mass Index 20.5 Const: General: cooperative Nutritional Appearance: average body habitus Orientation/consciousness: oriented to person and patient oriented x3 Limitations: no limitations HEENT: Head: Yes normal to inspection General nose exam: Normal external nose present Face and sinus: Yes normal facial exam Mouth: Normal oral and palatal mucosa present Throat: Yes posterior oropharynx normal Neck: Neck: Yes normal visual inspection and Yes full ROM Chest: Chest palpation & inspection: normal inspection of the chest Resp: Effort & Inspection: normal respiratory effort Auscultation: clear to auscultation bilaterally Cardio: Jugular venous distension: no JVD Rate: regular rate Rhythm: regular rhythm GI: Inspection: Yes normal to inspection Palpation (GI): Soft to palpation, not firm, nontender and no guarding Skin: General skin exam: no rashes or lesions noted Lesions: no lesions Rashes: no rashes Neuro: General: oriented to person and patient oriented x3 Cranial nerves: Yes CN's II-XII intact bilaterally Extrem: General: Yes normal to inspection, Yes full ROM and Yes capillary refill normal Course Reevaluation(s) Reevaluation #1: I re-examined the patient at 13:20 she is doing much better, she feels comfortable to go home. Electrolytes normal CT scan shows a question of minimal colitis, I do not think this patient is to be on p.o. antibiotic with discharged with diarrhea instruction Time: 13:21 Medications Administered Discontinued Medications Generic Name Dose Route Start Last Admin Trade Name Freq PRN Reason Stop Dose Admin Clonazepam 1 mg 08/29/22 09:59 08/29/22 10:18 Clonazepam 1 Mg Tablet PO 08/29/22 10:00 1 mg ONCE ONE Administration Sodium Chloride 1,000 mls @ 999 mls/hr 08/29/22 10:00 08/29/22 10:33 Ns IVCONT 08/29/22 11:00 999 mls/hr .Q1H1M BALDEMAR Administration Sodium Chloride 1,000 mls @ 999 mls/hr 08/29/22 12:00 08/29/22 12:05 Ns IVCONT 08/29/22 13:00 999 mls/hr .Q1H1M BALDEMAR Administration Iohexol 100 ml 08/29/22 11:18 08/29/22 11:19 Iohexol 350 Mg/Ml 100 Ml Infus..Btl IV 08/29/22 11:19 85 ml ONCE ONE Administration Ketorolac Tromethamine 30 mg 08/29/22 12:00 08/29/22 12:05 Ketorolac Tromethamine 30 Mg/Ml Vial IVPUSH 08/29/22 12:01 30 mg ONCE ONE Administration Loperamide HCl 2 mg 08/29/22 11:59 08/29/22 12:05 Loperamide Hcl 2 Mg Capsule PO 08/29/22 12:00 2 mg ONCE ONE Administration Ondansetron HCl 4 mg 08/29/22 10:00 08/29/22 10:32 Ondansetron Hcl 4 Mg/2 Ml Vial IVPUSH 08/29/22 10:01 4 mg ONCE ONE Administration Medical Decision Making Medical Decision Making [facility] Narrative: Patient presented with the diarrhea x1 day, 1 check labs will aid rate reassess Differential Diagnosis Differential Diagnoses: The differential diagnosis associated with the presentation includes Viral gastroenteritis/colitis Admission/Observation Consideration of admission/observation: Escalation of care including admission/observation considered Lab Data [facility] Lab Attestation statement: I reviewed the patient's lab results. 08/29/22 10:21 08/29/22 10:21 Labs: Lab Results 08/29/22 08/29/22 08/29/22 Range/Units 10:21 10:21 11:11 WBC 14.6 H (4.8-10.8) X10*3/uL RBC 4.24 (4.20-5.50) X10*6/uL Hgb 12.8 (12.0-16.0) g/dl Hct 36.6 L (37.0-47.0) % MCV 86.3 (80.0-98.0) fL MCH 30.2 (27.0-33.0) pg MCHC 35.0 (31.0-35.0) g/dl RDW 13.2 (11.0-16.0) % Plt Count 281 (160-400) X10*3/uL MPV 9.2 L (9.4-12.3) fL Immature Gran % (Auto) 0.3 (0.0-0.4) % Neut % (Auto) 89.0 H (45-73) % Lymph % (Auto) 6.0 L (20-40) % [place] % (Auto) 4.3 (2-11) % Eos % (Auto) 0.3 (0-4) % Baso % (Auto) 0.1 (0-2) % Lymph # (Auto) 0.9 L (1.2-4.9) X10*3/uL [place] # (Auto) 0.6 (0.1-1.2) X10*3/uL Eos # (Auto) 0.0 (0.0-0.4) X10*3/uL Baso # (Auto) 0.0 (0.0-0.2) X10*3/uL Abs Immat Gran (auto) 0.04 H (0.00-0.03) X10*3/uL Absolute Neuts (auto) 13.0 H (2.0-8.3) x10*3/uL Absolute Nucleated RBC 0.000 (0.0-0.012) X10*3/uL Nucleated RBC % (auto) 0.0 (0.0-0.2) /100WBC Sodium 129 L (135-145) mmol/L Potassium 4.0 (3.3-5.1) mmol/L Chloride 96 (96-108) mmol/L Carbon Dioxide 24 (22-29) mmol/L Anion Gap 13 (12-20) BUN 10 (9-16) mg/dL Creatinine 0.76 (0.5-1.4) mg/dL Estim Creat Clear Calc 77.0 Estimated GFR > 60 Random Glucose 176 H (60-115) mg/dL Calcium 9.6 (8.4-10.2) mg/dL Total Bilirubin 0.4 (0.0-1.0) mg/dL AST 18 (5-31) U/L ALT 14 (0-31) U/L Alkaline Phosphatase 131 H (39-117) U/L Total Protein 6.5 (6.5-8.0) g/dL Albumin 4.3 (3.5-5.0) g/dL Urine Color Urine Appearance Urine pH (5.0-9.0) Ur Specific [place] (1.005-1.025) Urine Protein (Neg-Trace) mg/dL Urine Glucose (UA) (Negative) mg/dL Urine Ketones (Negative) mg/dL Urine Blood (Negative) Urine Nitrite (Negative) Ur Leukocyte Esterase (Negative) Urine RBC (0-2) /HPF Urine WBC (0-5) /HPF Ur Squamous Epith Cells (0-2) /HPF Urine Bacteria (None Seen) Hyaline Casts (0-2) /LPF Urine Opiates Screen (Not Detect) Urine Fentanyl Screen (Not Detect) Ur Barbiturates Screen (Not Detect) Ur Phencyclidine Scrn (Not Detect) Ur Amphetamines Screen (Not Detect) U Benzodiazepines Scrn (Not Detect) Urine Cocaine Screen (Not Detect) U Marijuana (THC) Screen (Not Detect) COVID-19 (PETRA) Negative (Negative) COVID-19 Clin Com See Note 08/29/22 08/29/22 Range/Units 12:18 12:18 WBC (4.8-10.8) X10*3/uL RBC (4.20-5.50) X10*6/uL Hgb (12.0-16.0) g/dl Hct (37.0-47.0) % MCV (80.0-98.0) fL MCH (27.0-33.0) pg MCHC (31.0-35.0) g/dl RDW (11.0-16.0) % Plt Count (160-400) X10*3/uL MPV (9.4-12.3) fL Immature Gran % (Auto) (0.0-0.4) % Neut % (Auto) (45-73) % Lymph % (Auto) (20-40) % [place] % (Auto) (2-11) % Eos % (Auto) (0-4) % Baso % (Auto) (0-2) % Lymph # (Auto) (1.2-4.9) X10*3/uL [place] # (Auto) (0.1-1.2) X10*3/uL Eos # (Auto) (0.0-0.4) X10*3/uL Baso # (Auto) (0.0-0.2) X10*3/uL Abs Immat Gran (auto) (0.00-0.03) X10*3/uL Absolute Neuts (auto) (2.0-8.3) x10*3/uL Absolute Nucleated RBC (0.0-0.012) X10*3/uL Nucleated RBC % (auto) (0.0-0.2) /100WBC Sodium (135-145) mmol/L Potassium (3.3-5.1) mmol/L Chloride (96-108) mmol/L Carbon Dioxide (22-29) mmol/L Anion Gap (12-20) BUN (9-16) mg/dL Creatinine (0.5-1.4) mg/dL Estim Creat Clear Calc Estimated GFR Random Glucose (60-115) mg/dL Calcium (8.4-10.2) mg/dL Total Bilirubin (0.0-1.0) mg/dL AST (5-31) U/L ALT (0-31) U/L Alkaline Phosphatase (39-117) U/L Total Protein (6.5-8.0) g/dL Albumin (3.5-5.0) g/dL Urine Color Yellow Urine Appearance Clear Urine pH 7.0 (5.0-9.0) Ur Specific [place] 1.015 (1.005-1.025) Urine Protein Negative (Neg-Trace) mg/dL Urine Glucose (UA) Negative (Negative) mg/dL Urine Ketones Negative (Negative) mg/dL Urine Blood Negative (Negative) Urine Nitrite Negative (Negative) Ur Leukocyte Esterase Negative (Negative) Urine RBC 0-2 (0-2) /HPF Urine WBC 0-5 (0-5) /HPF Ur Squamous Epith Cells 0-2 (0-2) /HPF Urine Bacteria 1+ (None Seen) Hyaline Casts 0-2 (0-2) /LPF Urine Opiates Screen Not Detected (Not Detect) Urine Fentanyl Screen Not Detected (Not Detect) Ur Barbiturates Screen Not Detected (Not Detect) Ur Phencyclidine Scrn Not Detected (Not Detect) Ur Amphetamines Screen Not Detected (Not Detect) U Benzodiazepines Scrn Not Detected (Not Detect) Urine Cocaine Screen Not Detected (Not Detect) U Marijuana (THC) Screen POSITIVE H (Not Detect) COVID-19 (PETRA) (Negative) COVID-19 Clin Com Independent Interpretation I performed an independent interpretation of an: CT Scan Radiology Impression Discussion of test interpretation with radiology: I have reviewed the radiologist's reading. Radiologist Impression: BLADDER: Unremarkable.? GASTROINTESTINAL TRACT: Question mild wall thickening of the distal colon/mild colitis versus underdistention. Small and large bowel is otherwise normal. The appendix is normal. The stomach is normal. ABDOMINAL WALL: No significant hernia is appreciated.? LYMPH NODES: Normal. VASCULAR: Severe atherosclerotic disease. No aneurysm. PELVIC VISCERA: Unremarkable.? OSSEOUS STRUCTURES: Degenerative changes of the spine.? CT/CT abdomen pelvis w IV con IMPRESSION: Question mild colitis of the distal colon versus underdistention. Fullness of the right renal pelvis and ureter. No stone seen. ? Fleischner guidelines were followed. Dictated By: Jamila Paul MD Signed By: <Electronically signed by Jamila Paul MD in [place]> 08/29/22 1147 DD/ [id number] Discharge Plan Discharge Clinical Impression: Diarrhea Patient Disposition: Home, Self-Care Instructions: Acute Diarrhea (ED) Prescriptions: No Action oxybutynin chloride 5 mg tablet extended release 24hr 15 mg PO DAILY 90 Days Qty: 270 1RF solifenacin [Vesicare] 10 mg tablet 10 mg PO DAILY 30 Days Qty: 30 3RF (DME) AeroEclipse II Nebulizer Misc See Rx Instructions .ROUTE .MEDSUPPLY Qty: 1 0RF Rx Instructions: As directed albuterol sulfate 0.63 mg/3 mL solution for nebulization 0.63 mg inhalation QID PRN (Reason: shortness of breath or wheezing) Qty: 75 0RF albuterol sulfate 90 mcg/actuation HFA aerosol inhaler 1 inh inhalation QID PRN (Reason: shortness of breath or wheezing) Qty: 8.5 0RF prednisone 20 mg tablet 40 mg PO DAILY 5 Days Qty: 10 0RF guaifenesin 200 mg/5 mL liquid 200 mg PO Q4H PRN (Reason: cough) Qty: 118 0RF loratadine 10 mg tablet 10 mg PO DAILY fluoxetine 20 mg capsule 20 mg PO DAILY levothyroxine [Synthroid] 125 mcg tablet 125 mcg PO DAILY simvastatin 20 mg tablet 20 mg PO BEDTIME diltiazem HCl 180 mg capsule,extended release 24hr 180 mg PO DAILY omeprazole 20 mg capsule,delayed release(DR/EC) 20 mg PO QPM clonazepam 1 mg tablet 1 mg PO TID PRN trazodone 50 mg tablet PO fluoxetine 40 mg capsule 40 mg PO DAILY oxcarbazepine 600 mg tablet 0 mg PO olanzapine 2.5 mg tablet 2.5 mg PO BEDTIME oxcarbazepine 300 mg tablet 300 mg PO DAILY olanzapine 10 mg tablet 10 mg PO BEDTIME fluticasone propionate 50 mcg/actuation spray,suspension intranasal Referrals: Doyle Lester MD [Primary Care Provider] - 2 days
[2022-08-29] MEDS: clonazePAM 1 MG TABLET PO (10:18)
[2022-08-29] MEDS: ondansetron HCL 4 MG/2 ML VIAL IVPUSH (10:32)
[2022-08-29 10:33] LABS: MANUAL DIFF FLAG NO
[2022-08-29] MEDS: 0.9 % Sodium Chloride 1,000 ML 999 ML IVCONT ×2 (10:33→12:05)
[2022-08-29 10:34] VITALS: TEMP 36.4
[2022-08-29 10:41] LABS: Basophils Percent Auto 0.1 % (0-2); Eosinophils Percent Auto 0.3 % (0-4); Hematocrit 36.6 % (37.0-47.0); Hemoglobin 12.8 g/dl (12.0-16.0); Imm Gran Abs Auto 0.04 X10*3/uL (0.00-0.03); Imm Gran Pct Auto 0.3 % (0.0-0.4); Lymphocytes Absolute Auto 0.9 X10*3/uL (1.2-4.9); Mean Corpuscular Hemoglobin 30.2 pg (27.0-33.0); Mean Corpuscular Volume 86.3 fL (80.0-98.0); Mean Platelet Volume 9.2 fL (9.4-12.3); Monocytes Absolute Auto 0.6 X10*3/uL (0.1-1.2); Monocytes Percent Auto 4.3 % (2-11); Platelet Count 281 X10*3/uL (160-400); Red Blood Count 4.24 X10*6/uL (4.20-5.50); Red Cell Distribution Width 13.2 % (11.0-16.0); White Blood Count 14.6 X10*3/uL (4.8-10.8)
[2022-08-29 10:51] LABS: Alanine Aminotransferase 14 U/L (0-31); Albumin Level 4.3 g/dL (3.5-5.0); Alkaline Phosphatase 131 U/L (39-117); Anion Gap 13 (12-20); Aspartate Amino Transferase 18 U/L (5-31); Bilirubin Total 0.4 mg/dL (0.0-1.0); Blood Urea Nitrogen 10 mg/dL (9-16); Calcium 9.6 mg/dL (8.4-10.2); Carbon Dioxide 24 mmol/L (22-29); Chloride 96 mmol/L (96-108); Estimated Glomerular Filt Rate > 60; Glucose Random 176 mg/dL (60-115); Sodium 129 mmol/L (135-145); Total Protein 6.5 g/dL (6.5-8.0)
[2022-08-29] MEDS: iohexoL 350 MG/ML 100 ML INFUS..BTL IV (11:19)
[2022-08-29 11:28] LABS: COVID-19 Test Negative (Negative); IDNOW Serial# BCCEAD1C
[2022-08-29] MEDS: Loperamide HCl 2 MG CAPSULE PO (12:05)
[2022-08-29] MEDS: Ketorolac Tromethamine 30 MG/ML VIAL IVPUSH (12:05)
[2022-08-29 12:35] LABS: Appearance Urine Clear; Color Urine Yellow; Glucose Urine UA Negative (Negative); Leukocyte Esterase Urine Negative (Negative); Nitrite Urine Negative (Negative); Specific Gravity - Urine 1.015 (1.005-1.025); Urine Blood Negative (Negative); Urine Ketones Negative (Negative); Urine Protein Negative (Neg-Trace)
[2022-08-29 12:36] LABS: Amphetamine Screen Urine Not Detected (Not Detect); Barbiturates, Urine Not Detected (Not Detect); Benzodiazepines Screen Urine Not Detected (Not Detect); Cannabinoid Screen Urine POSITIVE (Not Detect); Cocaine Screen Urine Not Detected (Not Detect); Fentanyl, urine Not Detected (Not Detect); Opiate Screen Urine Not Detected (Not Detect); Phencyclidine Screen Urine Not Detected (Not Detect)
[2022-08-29 12:48] LABS: Bacteria Urine 1+ (None Seen); Hyaline Casts Urine 0-2 /LPF (0-2); RBC Urine 0-2 /HPF (0-2); Squamous Epithelial Cell Urine 0-2 /HPF (0-2); WBC Urine 0-5 /HPF (0-5)
[2022-08-29 13:29] VITALS: BP 191/96; PULSE 76; RESP 18; O2SAT 98
--- NOTE | 2022-08-29 13:30 | PC.NURSE ---
Pt states did not take her BP meds this morning
== END 2022-08-29 14:03 | disposition home or self-care (01) ==
PROVIDERS: Emergency Provider Emergency Medicine; PCP Family Medicine
DX: R11.2 Nausea with vomiting, unspecified (principal); R19.7 Diarrhea, unspecified; Z20.822 Contact with and (suspected) exposure to COVID-19; Z20.828 Contact with and (suspected) exposure to other viral communicable diseases; Z79.899 Other long term (current) drug therapy
CPT/HCPCS: 36415; 74177; 80053; 80307; 81001; 85025; 87635; 96361; 96374; 96375; 99285; J1885; J2405; Q9967

== ENCOUNTER 2022-08-30 10:12 | Outpatient (AMB) | payer OTHER, SELFPAY ==
--- NOTE | 2022-08-30 10:19 | A.OFFVIS_ITS ---
Intake Intake Visit Reasons: 6 month OAB follow up Intake Note: Patient is present for follow up OAB Urology Medications: oxybutynin Blood Thinner: none PVR: 0ml's [place] Kiln Operator Required: No Accompanied by: Self / Same As Patient Allergies gabapentin Allergy (Unknown, Verified 08/30/22 11:59) Unknown codeine [CODEINE] Adverse Reaction (Intermediate, Verified 08/30/22 11:59) NAUSEA & VOMITING nicotine Adverse Reaction (Verified 08/30/22 11:59) Itching Medication List - Last Reconciled 08/30/22 by NATHANAEL MeyerP- albuterol sulfate 0.63 mg (3 mL) inhalation QID PRN albuterol sulfate 90 mcg/actuation 1 inh inhalation QID PRN clonazepam 1 mg PO TID PRN diltiazem HCl 180 mg PO DAILY fluoxetine 20 mg PO DAILY fluoxetine 40 mg PO DAILY fluticasone propionate 50 mcg/actuation sprays intranasal levothyroxine (Synthroid) 125 mcg PO DAILY loratadine 10 mg PO DAILY mirabegron ER (Myrbetriq) 25 mg PO DAILY 30 days nebulizers (AeroEclipse II Nebulizer) As directed olanzapine 10 mg PO BEDTIME omeprazole 20 mg PO QPM oxcarbazepine 300 mg PO DAILY oxcarbazepine 0 mg PO simvastatin 20 mg PO BEDTIME trazodone mg PO HPI HPI Comments History of Present Illness Details Antonieta is a pleasant 61 year old female patient of who has a PMH of bipolar disorder, PTSD, and anxiety. She presents to the office today for follow-up of her overactive bladder. Patient reports being in emergency room yesterday for ongoing diarrhea with lower abdominal pain. She reports diarrhea has since subsided and she is feeling better however is tired due to lack of sleep with being in the ER until late. In discussion with the patient today she reports being on oxybutynin for many years and feels it isnt working as effectively as it has been. It appears CT of the abdomen and pelvis was performed yesterday while in emergency room these results were reviewed with the patient today. Kidneys and ureters: Mild dilatation of the right renal pelvis and ureter. No stone seen. Small right renal cyst. No imaging follow-up recommended. The bladder is unremarkable.?BUN--10 Creatinine -- 0.76. Patient reports urinary urgency and frequency with episodes of incontinence if not near a bathroom. She reports urinary frequency is worse after having her 2 cups of coffee in the morning. Discussed at length caffeine and dieresis thus increasing urinary frequency. Discussed and stressed the importance of timed voiding as patient reporting she utilizes restroom only with sense of urgency as well as her decreased mobility taking her longer to get to the restroom thus causing increase in incontinent episodes. When asked she denies nocturia, hematuria, dysuria, foul smelling urine, changes to urinary stream, flank pain, fever, and or chills. Patient unable to give urine for urinalysis however PVR 0 mL. [facility] Medical History DOMINIK (stress urinary incontinence, female) Urge incontinence UTI (urinary tract infection) Social History Alcohol intake: never Patient Tobacco Use Status: Current everyday Tobacco user Substance Use Type: Marijuana Review of Systems Const Reports as per HPI Eyes Reports no additional complaints ENT Reports no additional complaints Card Details: reports taking medication for her heart Resp Reports no additional complaints GI Reports as per HPI Reports as per HPI Musc Reports no additional complaints Neuro Reports no additional complaints Psych Details: reports being in medication to help her with her depression Physical Exam Const General: cooperative, comfortable, no acute distress, well developed, alert and awake Orientation/consciousness: patient oriented x3 HEENT Head: Yes normal to inspection, Yes normocephalic and Yes atraumatic Ears: hearing grossly normal bilaterally Eyes General: appearance normal, both eyes and all related structures Neck Neck: Yes normal visual inspection and Yes trachea midline Chest Chest palpation & inspection: normal inspection of the chest Resp Effort & Inspection: normal respiratory effort and able to speak in complete sentences Cardio Rate: regular rate GI Inspection: Yes normal to inspection General: Yes no CVA tenderness Back/Spine/Pelvis Back: no CVA tenderness Skin General skin exam: no rashes or lesions noted Neuro General: patient oriented x3 Extrem General: Yes normal to inspection Psych Appearance: grossly normal and well kempt Mental Status: mental status grossly normal Speech and movement: Normal speech and movement present and Clear speech present Affect: normal affect Attitude: cooperative Thought process: Normal thought process present Thought content: Normal thought content present Insight: Fair insight present (Psych) Judgement: Fair judgement present (Psych) Office Procedures Post Void Residual Post Residual Void Post Void Residual (PVR): 0 [id number]-Natf Void Residual by ultrasound Results Reviewed Results Reviewed: Date of Service: 08/29/22 CT ABDOMEN AND PELVIS WITH CONTRAST? FINDINGS: LUNG BASES: Stable small bilateral pulmonary nodules from 2013. LIVER, GALLBLADDER, AND BILIARY TREE: The liver is normal in size, shape, and attenuation. No focal hepatic lesion or biliary ductal dilatation is present. The gallbladder is unremarkable with no evidence of radiopaque gallstones, gallbladder wall thickening, or obvious pericholecystic inflammatory changes.? PANCREAS: Unremarkable.? SPLEEN: Unremarkable.? ADRENAL GLANDS: Unremarkable.? KIDNEYS AND URETERS: Mild dilatation of the right renal pelvis and ureter. No stone seen. . Small right renal cyst. No imaging follow-up recommended. BLADDER: Unremarkable.? GASTROINTESTINAL TRACT: Question mild wall thickening of the distal colon/mild colitis versus underdistention. Small and large bowel is otherwise normal. The appendix is normal. The stomach is normal. ABDOMINAL WALL: No significant hernia is appreciated.? LYMPH NODES: Normal. VASCULAR: Severe atherosclerotic disease. No aneurysm. PELVIC VISCERA: Unremarkable.? OSSEOUS STRUCTURES: Degenerative changes of the spine.? IMPRESSION: Question mild colitis of the distal colon versus underdistention. Fullness of the right renal pelvis and ureter. No stone seen. Assessment & Plan Assessment & Plan (1) Urge incontinence: Code(s): N39.41 - Urge incontinence Plan Patient unable to urinate for urinalysis however PVR [address] imaging results regarding kidney and bladder reviewed with the patient today; as noted above Stop/discontinue oxybutynin 15 mg daily as discussed. Start Myrbetriq 25mg as discussed and prescribed Discussed possible near furture in office cystoscopy if symptoms worsen and or persist. Discussed the importance of timed voiding and scheduled toileting in the setting of decreased mobility to assist with decreasing episodes of urge incontinence. Discussed, educated, encouraged to continue drinking adequate amount of fluid daily. Discussed bladder triggers/irritants. Follow-up in 6 weeks with PVR; or sooner with any issues or concerns Orders: Orders AMB Urinalysis Automated Today Z13.9 - Encounter for screening, unspecified AMB Post Void Residual by ultrasound Today N39.41 - Urge incontinence Medications: New mirabegron ER (Myrbetriq) 25 mg PO DAILY 30 days 30 tabs 1RF N30.10 - Interstitial cystitis (chronic) without hematuria, N32.81 - Overactive bladder, R35.1 - Nocturia, R39.15 - Urgency of urination Discontinued oxybutynin chloride ER Discontinued Reason: Doctor's Order 15 mg (3 x 5 mg) PO DAILY 90 days 270 tabs 1RF Patient Instructions: The patient had an opportunity to ask questions regarding the treatment plan. All questions were answered. Physical exam, labs, and imaging were discussed and reviewed in detail. As well as risks, benefits, and discussion of treatment choices. No major barriers to understanding were identified. The patient expressed understanding and agreement with the above treatment plan. The patient was made aware they should contact our office by phone for worsening of their current condition, the appearance of new symptoms, or with any questions or concerns. Compliance is encouraged with any medications and follow up testing that is ordered. It is a privilege to be allowed the opportunity to participate in? your urological care.? Again, if you have any questions or concerns If you have any questions or concerns please do not hesitate to contact me. The office is [phone]. This note is constructed using voice recognition software. While every effort has been made to ensure accuracy product support analyst errors may have been included. Yours sincerely, HIRAM Meyer Coding Level of Care Code Est Pt Level 4 (16420) Diagnoses Urge incontinence N39.41 CPT Codes Post Residual Void - PVR CPT Code: 32286-Ktyw Void Residual by ultrasound ([id number])
== END 2022-08-30 10:58 | disposition home or self-care (01) ==
LOC: HO.HUSH 10:12
PROVIDERS: PCP Family Medicine; Visit Provider Nurse Practitioner Family
DX: Z13.9 Encounter for screening, unspecified (principal)
CPT/HCPCS: 99214

== ENCOUNTER → 2022-08-30 10:12 | Outpatient (BNVA) | payer OTHER, SELFPAY | PROVIDERS: PCP Family Medicine; Visit Provider Nurse Practitioner Family | DX: N32.81 Overactive bladder (principal); N39.46 Mixed incontinence; N30.10 Interstitial cystitis (chronic) without hematuria; R91.8 Other nonspecific abnormal finding of lung field; Z79.899 Other long term (current) drug therapy | CPT/HCPCS: 51798; 81003; 99212 ==

== ENCOUNTER 2022-09-01 09:37 | Outpatient (REF) | payer OTHER, SELFPAY | END 2022-09-01 09:38 | disposition home or self-care (01) | LOC: HO.LAB 09:37 | PROVIDERS: PCP Family Medicine; Referring Provider Family Medicine; Visit Provider Surgery | DX: L72.3 Sebaceous cyst (principal); L08.9 Local infection of the skin and subcutaneous tissue, unspecified | CPT/HCPCS: 10060; 10061; 87070; 87205; 99202 ==

== ENCOUNTER → 2022-09-10 10:13 | Outpatient (BNVA) | payer OTHER, SELFPAY | PROVIDERS: PCP Family Medicine; Visit Provider Surgery | DX: L72.3 Sebaceous cyst (principal); L08.9 Local infection of the skin and subcutaneous tissue, unspecified | CPT/HCPCS: 99212 ==

== ENCOUNTER → 2022-09-24 10:24 | Outpatient (BNVA) | payer OTHER, SELFPAY | PROVIDERS: PCP Family Medicine; Visit Provider Surgery | DX: L72.3 Sebaceous cyst (principal); L08.9 Local infection of the skin and subcutaneous tissue, unspecified | CPT/HCPCS: 99212 ==

== ENCOUNTER 2022-10-11 10:26 | Outpatient (REF) | payer OTHER, SELFPAY | END 2022-10-11 10:27 | disposition home or self-care (01) | LOC: HO.LNP 10:26 | PROVIDERS: PCP Family Medicine; Visit Provider Surgery | DX: L72.3 Sebaceous cyst (principal); L08.9 Local infection of the skin and subcutaneous tissue, unspecified; K61.1 Rectal abscess | CPT/HCPCS: 11404; 88304; 99212 ==

== ENCOUNTER → 2022-10-12 10:01 | Outpatient (BNVA) | payer OTHER, SELFPAY | PROVIDERS: PCP Family Medicine; Visit Provider Nurse Practitioner Family | DX: N39.41 Urge incontinence (principal); N32.81 Overactive bladder; R35.1 Nocturia; Z79.899 Other long term (current) drug therapy | CPT/HCPCS: 51798; Q3014 ==

== ENCOUNTER 2022-11-10 09:51 | Outpatient (REF) | payer OTHER, SELFPAY ==
--- NOTE | ~2022-11-10 | MM_ITS ---
EXAMINATION: MM SCREENING DIGITAL BREAST TOMOSYNTHESIS, BILATERAL CLINICAL INFORMATION: Screening. Asymptomatic. The lifetime risk of breast cancer based on the Tyrer-Cuzick Model is 4%. COMPARISON: Mammography: 10/21/2021, 06/26/2020, 02/15/2019 TECHNIQUE: Digital breast tomosynthesis is performed in both the craniocaudal and mediolateral oblique views along with computer-aided detection (CAD). Synthesized 2D images are generated from the tomosynthesis. FINDINGS: The breasts are heterogeneously dense, which may obscure small masses (ACR BI-RADS breast composition Category c). There are no significant masses, abnormal calcifications, or other abnormalities. Parenchymal pattern is similar to prior studies. There is no developing density or architectural abnormality. The axilla and skin contours are unremarkable. No significant changes. MM/MM tomosynthesis screening BI IMPRESSION: No mammographic evidence of malignancy. ASSESSMENT: BI-RADS 1: Negative RECOMMENDATION: Routine annual mammography screening. This patient's information was entered into a reminder system with a target due date for their next mammogram.
== END 2022-11-10 09:52 | disposition home or self-care (01) ==
LOC: HO.MAMMO 09:51
PROVIDERS: PCP Family Medicine; Visit Provider Family Medicine
DX: Z12.31 Encounter for screening mammogram for malignant neoplasm of breast (principal)
CPT/HCPCS: 77063; 77067

== ENCOUNTER 2022-12-14 12:37 | Outpatient (REF) | payer OTHER, SELFPAY ==
[2022-12-14 15:08] LABS: Free T4 (Free Thyroxine) 1.02 ng/dL (0.71-1.85); Thyroid Stimulating Hormone 0.16 uIU/mL (0.32-4.0)
[2022-12-14 16:05] LABS: Amphetamine Screen Urine Not Detected (Not Detect); Barbiturates, Urine Not Detected (Not Detect); Benzodiazepines Screen Urine Not Detected (Not Detect); Cannabinoid Screen Urine POSITIVE (Not Detect); Cocaine Screen Urine Not Detected (Not Detect); Fentanyl, urine Not Detected (Not Detect); Opiate Screen Urine Not Detected (Not Detect); Phencyclidine Screen Urine Not Detected (Not Detect)
== END 2022-12-14 12:38 | disposition home or self-care (01) ==
LOC: HO.LAB 12:37
PROVIDERS: Absent Provider Psychiatry & Neurology Psychiatry; PCP Family Medicine; Visit Provider Family Medicine
DX: E03.9 Hypothyroidism, unspecified (principal); Z79.899 Other long term (current) drug therapy
CPT/HCPCS: 36415; 80307; 84439; 84443

== ENCOUNTER 2023-03-25 14:25 | Outpatient (REF) | payer OTHER, SELFPAY ==
[2023-03-25 16:07] LABS: Alanine Aminotransferase 13 U/L (0-31); Albumin Level 4.6 g/dL (3.5-5.0); Alkaline Phosphatase 106 U/L (39-117); Anion Gap 15 (12-20); Aspartate Amino Transferase 20 U/L (5-31); Bilirubin Direct 0.2 mg/dL (0.0-0.5); Bilirubin Total 0.4 mg/dL (0.0-1.0); Carbon Dioxide 22 mmol/L (22-29); Chloride 95 mmol/L (96-108); Potassium 4.2 mmol/L (3.3-5.1); Sodium 128 mmol/L (135-145); Total Protein 7.4 g/dL (6.5-8.0)
[2023-03-25 16:24] LABS: Free T4 (Free Thyroxine) 1.14 ng/dL (0.71-1.85); Thyroid Stimulating Hormone 0.94 uIU/mL (0.32-4.0)
== END 2023-03-25 14:26 | disposition home or self-care (01) ==
LOC: HO.LAB 14:25
PROVIDERS: PCP Family Medicine; Visit Provider Family Medicine
DX: E03.9 Hypothyroidism, unspecified (principal); R11.0 Nausea; E87.1 Hypo-osmolality and hyponatremia
CPT/HCPCS: 36415; 80051; 80076; 84439; 84443

== ENCOUNTER 2023-08-17 12:23 | Outpatient (REF) | payer OTHER, SELFPAY ==
[2023-08-17 13:33] LABS: Anion Gap 11 (12-20); Carbon Dioxide 24 mmol/L (22-29); Chloride 95 mmol/L (96-108); Potassium 4.1 mmol/L (3.3-5.1); Sodium 126 mmol/L (135-145)
[2023-08-17 15:33] LABS: Osmolality Urine 505 mosm/kg (373-1093)
== END 2023-08-17 12:24 | disposition home or self-care (01) ==
LOC: HO.LAB 12:23
PROVIDERS: PCP Family Medicine; Visit Provider Family Medicine
DX: E87.1 Hypo-osmolality and hyponatremia (principal)
CPT/HCPCS: 36415; 80051; 83935; 84300

== ENCOUNTER 2023-10-12 10:01 | Outpatient (REF) | payer OTHER, SELFPAY ==
[2023-10-12 11:32] LABS: Alanine Aminotransferase 14 U/L (0-31); Anion Gap 12 (12-20); Aspartate Amino Transferase 19 U/L (5-31); Blood Urea Nitrogen 9 mg/dL (9-16); Carbon Dioxide 26 mmol/L (22-29); Chloride 100 mmol/L (96-108); Estimated Glomerular Filt Rate > 60; Potassium 4.3 mmol/L (3.3-5.1); Sodium 134 mmol/L (135-145)
[2023-10-12 11:50] LABS: Free T4 (Free Thyroxine) 1.14 ng/dL (0.71-1.85)
== END 2023-10-12 10:02 | disposition home or self-care (01) ==
LOC: HO.LAB 10:01
PROVIDERS: PCP Family Medicine; Visit Provider Family Medicine
DX: I10 Essential (primary) hypertension (principal); E03.9 Hypothyroidism, unspecified; E78.00 Pure hypercholesterolemia, unspecified; Z79.899 Other long term (current) drug therapy
CPT/HCPCS: 36415; 80051; 82550; 82565; 84439; 84443; 84450; 84460; 84520

== ENCOUNTER 2023-10-13 14:55 | Outpatient (AMB) | payer OTHER, SELFPAY ==
--- NOTE | 2023-10-13 15:07 | A.OFFVIS_ITS ---
Intake Visit Reasons: yearly follow up/PVR Intake Note: Patient is Present for PVR/ Urology Med: Myrbetriq Antibiotic Allergy:None Blood Thinner:None Last PVR: 0 Todays PVR: 0 Allergies gabapentin Allergy (Unknown, Verified 10/13/23 22:40) Unknown codeine [CODEINE] Adverse Reaction (Intermediate, Verified 10/13/23 22:40) NAUSEA & VOMITING nicotine Adverse Reaction (Verified 10/13/23 22:40) Itching Medication List - Last Reconciled 10/13/23 by HIRAM Meyer albuterol sulfate 0.63 mg (3 mL) inhalation QID PRN albuterol sulfate 90 mcg/actuation 1 inh inhalation QID PRN clonazepam 1 mg PO BID PRN diltiazem HCl CD 180 mg PO DAILY fluoxetine 20 mg PO DAILY fluoxetine 40 mg PO DAILY hydrocodone-acetaminophen 5-325 mg 1 tab PO Q4-6H PRN ibuprofen 800 mg PO Q12H PRN levothyroxine (Synthroid) 125 mcg PO DAILY loratadine 10 mg PO DAILY mirabegron ER (Myrbetriq) 25 mg PO DAILY 90 days nebulizers (AeroEclipse II Nebulizer) As directed olanzapine 10 mg PO BEDTIME omeprazole 20 mg PO QPM oxcarbazepine 300 mg PO DAILY oxcarbazepine 0 mg PO simvastatin 20 mg PO BEDTIME trazodone mg PO HPI Comments Details: Antonieta is a pleasant 62 year old female patient of who has a PMH of bipolar disorder, PTSD, and anxiety. She presents to the office today for follow-up of her overactive bladder. In discussion with the patient today she reports to be doing and feeling well. She reports to be significantly happy with current voiding parameters on 25 mg of Myrbetriq daily. She reports she has significantly decreased the amount of adult incontinence supplies. She currently denies any bothersome urinary issues or concerns. She denies urinary urgency, urinary frequency, nocturia, hematuria, dysuria, foul smelling urine, changes to urinary stream, flank pain, fever, and or chills. In office urinalysis results reviewed with the patient today. PVR 0ml's. She otherwise offers no other issues or concerns at this time. [facility] Medical History DOMINIK (stress urinary incontinence, female) Urge incontinence UTI (urinary tract infection) Surgical History History of tubal ligation Social History Alcohol intake: never Patient Tobacco Use Status: Former Tobacco user Substance Use Type: Marijuana Review of Systems Const All systems reviewed & are unremarkable except as noted in HPI and below Psych Details: reports being in medication to help her with her depression Physical Exam Const General: cooperative, healthy appearing, comfortable, no acute distress, well developed, alert and awake Orientation/consciousness: patient oriented x3 HEENT Head: Yes normal to inspection, Yes normocephalic and Yes atraumatic Ears: hearing grossly normal bilaterally Eyes General: appearance normal, both eyes and all related structures Neck Neck: Yes normal visual inspection and Yes trachea midline Chest Chest palpation & inspection: normal inspection of the chest Resp Effort & Inspection: normal respiratory effort and able to speak in complete sentences Cardio Rate: regular rate GI Inspection: Yes normal to inspection General: Yes no CVA tenderness Back/Spine/Pelvis Back: no CVA tenderness Skin General skin exam: no rashes or lesions noted Neuro General: patient oriented x3 Extrem General: Yes normal to inspection Psych Appearance: grossly normal and well kempt Mental Status: mental status grossly normal Speech and movement: Normal speech and movement present and Clear speech present Affect: normal affect Attitude: cooperative Thought process: Normal thought process present Thought content: Normal thought content present Insight: Fair insight present (Psych) Judgement: Fair judgement present (Psych) Office Procedures Post Void Residual Post Residual Void Post Void Residual (PVR): 0 [id number] Void Residual by ultrasound Results AMB Urinalysis, Automated UA Leukoctes 0 Vladislav/uL Last Edit by DEBBIE Gann on 10/13/23 15:16 UA Nitrite Negative Last Edit by DEBBIE Gann on 10/13/23 15:16 UA Urobilinogen 0.2 mg/dL Last Edit by DEBBIE Gann on 10/13/23 15:1 6 UA Protein 15 mg/dL Last Edit by DEBBIE Gann on 10/13/23 15:16 UA pH 6.0 Last Edit by Kristie Grissom, A on 10/13/23 15:16 UA Blood 0 Cr/uL Last Edit by Kristie Grissom RMA on 10/13/23 15:16 UA Specific [place] 1.005 Last Edit by Kristie Grissom, RMA on 10/13/23 15: 16 UA Ketone Negative Last Edit by Kristie Grissom, RMA on 10/13/23 15:16 UA Bilirubin 0 mg/dL Last Edit by Kristie Grissom, RMA on 10/13/23 15:16 UA Glucose 0 mg/dL Last Edit by Kristie Grissom, RMA on 10/13/23 15:16 Results Reviewed Results Reviewed: Laboratory Last Values Urine pH (Auto) 6.0 10/13/23 15:15 Specific [place] (Auto) 1.005 10/13/23 15:15 Urine Protein (Auto) 15 mg/dL 10/13/23 15:15 Glucose (UA)(Auto) 0 mg/dL 10/13/23 15:15 Urine Ketones (Auto) Negative 10/13/23 15:15 Urine Blood (Auto) 0 Cr/uL 10/13/23 15:15 Urine Nitrite (Auto) Negative 10/13/23 15:15 Urine Bilirubin (Auto) 0 mg/dL 10/13/23 15:15 Urine Urobilinogen (Auto) 0.2 mg/dL 10/13/23 15:15 Leukocyte Esterase (Auto) 0 Vladislav/uL 10/13/23 15:15 Assessment & Plan Assessment & Plan (1) Mixed incontinence urge and stress: Code(s): N39.46 - Mixed incontinence Category: Medical Plan In office urinalysis results reviewed with the patient today; as noted above. PVR 0 mL. Continue Myrbetriq 25 mg daily as discussed and prescribed; refill provided. Patient currently denies any bothersome urinary issues or concerns. Patient reports be happy with current voiding parameters. Follow-up in 6 months with PVR; or sooner with any issues, concerns, and or questions. Orders: Orders AMB Post Void Residual by ultrasound Today N39.3 - Stress incontinence (female) (male) AMB Urinalysis Automated Today Z13.9 - Encounter for screening, unspecified Medications: Refilled mirabegron ER (Myrbetriq) 25 mg PO DAILY 90 days 90 tabs 4RF N30.10 - Interstitial cystitis (chronic) without hematuria, N32.81 - Overactive bladder, R35.1 - Nocturia, R39.15 - Urgency of urination Patient Instructions: The patient had an opportunity to ask questions regarding the treatment plan. All questions were answered. Physical exam, labs, and imaging were discussed and reviewed in detail. As well as risks, benefits, and discussion of treatment choices. No major barriers to understanding were identified. The patient expressed understanding and agreement with the above treatment plan. The patient was made aware they should contact our office by phone for worsening of their current condition, the appearance of new symptoms, or with any questions or concerns. Compliance is encouraged with any medications and follow up testing that is ordered. It is a privilege to be allowed the opportunity to participate in? your urological care.? Again, if you have any questions or concerns If you have any questions or concerns please do not hesitate to contact me. The office is [phone]. This note is constructed using voice recognition software. While every effort has been made to ensure accuracy drapery cutter errors may have been included. Yours sincerely, HIRAM Meyer Coding Level of Care Code Est Pt Level 3 (26479) Diagnoses Mixed incontinence urge and stress N39.46 CPT Codes Post Residual Void - PVR CPT Code: 76107-Ends Void Residual by ultrasound ([id number])
== END 2023-10-13 15:59 | disposition home or self-care (01) ==
PROVIDERS: Visit Provider Nurse Practitioner Family
DX: Z13.9 Encounter for screening, unspecified (principal); N39.46 Mixed incontinence
CPT/HCPCS: 99213

== ENCOUNTER → 2023-10-13 14:55 | Outpatient (BNVA) | payer OTHER, SELFPAY | PROVIDERS: Visit Provider Nurse Practitioner Family | DX: N39.46 Mixed incontinence (principal) | CPT/HCPCS: 51798; 81003; 99212 ==

== ENCOUNTER 2023-11-16 09:55 | Outpatient (REF) | payer OTHER, SELFPAY | END 2023-11-16 09:56 | disposition home or self-care (01) | LOC: HO.MAMMO 09:55 | PROVIDERS: PCP Family Medicine; Visit Provider Family Medicine | DX: Z12.31 Encounter for screening mammogram for malignant neoplasm of breast (principal) | CPT/HCPCS: 77063; 77067 ==

== ENCOUNTER → 2023-11-16 10:15 | Outpatient (BNV) | payer OTHER, SELFPAY | PROVIDERS: PCP Family Medicine; Visit Provider Radiology Diagnostic Radiology | DX: Z12.31 Encounter for screening mammogram for malignant neoplasm of breast (principal) | CPT/HCPCS: 77063; 77067 ==

== ENCOUNTER 2023-12-14 12:31 | Outpatient (REF) | payer OTHER, SELFPAY ==
--- NOTE | ~2023-12-14 | XR_ITS ---
EXAMINATION: XR CERVICAL SPINE CLINICAL INFORMATION: Neck pain COMPARISON: None available. TECHNIQUE: 6 views of the cervical spine. FINDINGS: The craniocervical junction is intact. The cervical vertebra have normal height and alignment. No fracture or prevertebral soft tissue swelling. [id number]-[id number] degenerative narrowing of disc space, small anterior vertebral traction osteophytes and uncovertebral hypertrophy at C4-C5 and C5-C6. Also, bilateral neural foraminal stenosis is noted. On the right, the neural foraminal stenosis is [id number] at C4-C5 and C5-C6. On the left, the foraminal stenosis appears to be moderate in degree at C4-C5 and C5-C6. The lung apices are unremarkable. XR/XR cervical spine 5V IMPRESSION: * [id number]-[id number] disc degenerative change at and C4-C5 and C5-C6. * There is bilateral neural foraminal stenosis at C4-C5 and C5-C6 (right worse than left). * No fracture or malalignment of the cervical spine.
== END 2023-12-14 12:32 | disposition home or self-care (01) ==
LOC: HO.XRAY 12:31
PROVIDERS: PCP Family Medicine; Visit Provider Family Medicine
DX: M54.2 Cervicalgia (principal); R20.0 Anesthesia of skin
CPT/HCPCS: 72050

== ENCOUNTER 2024-01-04 14:20 | Outpatient (REF) | payer OTHER, SELFPAY | END 2024-01-04 14:21 | disposition home or self-care (01) | LOC: HO.SH 14:20 | PROVIDERS: Visit Provider Family Medicine | DX: Z01.118 Encounter for examination of ears and hearing with other abnormal findings (principal); H90.3 Sensorineural hearing loss, bilateral | CPT/HCPCS: 92557 ==

== ENCOUNTER 2024-01-31 11:29 | Outpatient (REF) | payer OTHER, SELFPAY ==
[2024-01-31 12:43] LABS: Anion Gap 12 (12-20); Carbon Dioxide 23 mmol/L (22-29); Chloride 106 mmol/L (96-108); Potassium 4.1 mmol/L (3.3-5.1); Sodium 137 mmol/L (135-145)
== END 2024-01-31 11:30 | disposition home or self-care (01) ==
LOC: HO.LAB 11:29
PROVIDERS: PCP Family Medicine; Visit Provider Family Medicine
DX: E87.1 Hypo-osmolality and hyponatremia (principal)
CPT/HCPCS: 36415; 80051

== ENCOUNTER 2024-04-09 13:21 | Outpatient (AMB) | payer OTHER, SELFPAY ==
--- NOTE | 2024-04-09 13:26 | A.OFFVIS_ITS ---
Intake Visit Reasons: 6M/PVR Intake Note: Patient presents today for follow up on: incontinence Urology Medications: myrbetriq Antibiotic Allergy:None Blood Thinner:None PVR: 0ml's Truer Pinion And Wheel Required: No Accompanied by: Self / Same As Patient Allergies gabapentin Allergy (Unknown, Verified 04/09/24 14:02) Unknown codeine [CODEINE] Adverse Reaction (Intermediate, Verified 04/09/24 14:02) NAUSEA & VOMITING nicotine Adverse Reaction (Verified 04/09/24 14:02) Itching Medication List - Last Reconciled 04/09/24 by KAYLENE Meyer- albuterol sulfate 0.63 mg (3 mL) inhalation QID PRN albuterol sulfate 90 mcg/actuation 1 inh inhalation QID PRN clonazepam 1 mg PO BID PRN diltiazem HCl CD 180 mg PO DAILY fluoxetine 20 mg PO DAILY fluoxetine 40 mg PO DAILY hydrocodone-acetaminophen 5-325 mg 1 tab PO Q4-6H PRN ibuprofen 800 mg PO Q12H PRN levothyroxine (Synthroid) 125 mcg PO DAILY loratadine 10 mg PO DAILY mirabegron ER (Myrbetriq) 25 mg PO DAILY 90 days nebulizers (AeroEclipse II Nebulizer) As directed olanzapine 10 mg PO BEDTIME omeprazole 20 mg PO QPM simvastatin 20 mg PO BEDTIME trazodone mg PO HPI Comments Details: Antonieta is a pleasant 63 year old female patient of who has a PMH of bipolar disorder, PTSD, and anxiety. She presents to the office today for follow-up of her overactive bladder. In discussion with the patient today she reports to be doing and feeling well. She reports to be happy with current voiding parameters on 25 mg of Myrbetriq daily. She discusses the improvement in her lower urinary tract symptoms with this medication. She discusses significantly decreasing the amount of incontinence supplies she had been utilizing. She does report continued episodes of stress incontinence however reports them to be infrequent. We discussed performing pelvic floor exercises for stress incontinence information provided. She otherwise denies any bothersome urinary issues or concerns. She denies urinary urgency, urinary frequency, nocturia, hematuria, dysuria, foul smelling urine, changes to urinary stream, flank pain, fever, and or chills. In office urinalysis results reviewed with the patient today. PVR 0ml's. She otherwise offers no other issues or concerns at this time. [facility] Medical History Depression Thyroid disease Hyperlipidemia Personal history of nicotine dependence DOMINIK (stress urinary incontinence, female) Urge incontinence Surgical History (Updated 04/02/24 @ 14:25 by Kaia Leung PA-C) History of colonoscopy History of tubal ligation Social History Alcohol intake: never Patient Tobacco Use Status: Former Tobacco user Substance Use Type: Marijuana Review of Systems Const All systems reviewed & are unremarkable except as noted in HPI and below Psych Details: reports being in medication to help her with her depression Physical Exam Const General: cooperative, healthy appearing, comfortable, no acute distress, well developed, alert and awake Orientation/consciousness: patient oriented x3 HEENT Head: Yes normal to inspection, Yes normocephalic and Yes atraumatic Ears: hearing grossly normal bilaterally Eyes General: appearance normal, both eyes and all related structures Neck Neck: Yes normal visual inspection and Yes trachea midline Chest Chest palpation & inspection: normal inspection of the chest Resp Effort & Inspection: normal respiratory effort and able to speak in complete sentences Cardio Rate: regular rate GI Inspection: Yes normal to inspection General: Yes no CVA tenderness Back/Spine/Pelvis Back: no CVA tenderness Skin General skin exam: no rashes or lesions noted Neuro General: patient oriented x3 Extrem General: Yes normal to inspection Psych Appearance: grossly normal and well kempt Mental Status: mental status grossly normal Speech and movement: Normal speech and movement present and Clear speech present Affect: normal affect Attitude: cooperative Thought process: Normal thought process present Thought content: Normal thought content present Insight: Fair insight present (Psych) Judgement: Fair judgement present (Psych) Office Procedures Post Void Residual Post Residual Void Post Void Residual (PVR): 0 [id number]-[id number] Void Residual by ultrasound Assessment & Plan Assessment & Plan (1) Mixed incontinence urge and stress: Code(s): N39.46 - Mixed incontinence Category: Medical (2) DOMINIK (stress urinary incontinence, female): Code(s): N39.3 - Stress incontinence (female) (male) Category: Medical Plan In office urinalysis results reviewed with the patient today; as noted above; discussed proteinuria and follow-up with Nephrology however patient declines she reports you follow-up with PCP as she has an appointment coming up. PVR 0 mL. Continue Myrbetriq 25 mg daily as discussed and prescribed; refill provided. Patient currently denies any bothersome urinary issues or concerns. Patient reports be happy with current voiding parameters. Follow-up in 6 months with PVR; or sooner with any issues, concerns, and or questions. Orders: Orders AMB Post Void Residual by ultrasound Today N39.46 - Mixed incontinence Medications: Refilled mirabegron ER (Myrbetriq) 25 mg PO DAILY 90 tabs 4RF 90 days N30.10 - Interstitial cystitis (chronic) without hematuria, N32.81 - Overactive bladder, R35.1 - Nocturia, R39.15 - Urgency of urination Patient Instructions: The patient had an opportunity to ask questions regarding the treatment plan. All questions were answered. Physical exam, labs, and imaging were discussed and reviewed in detail. As well as risks, benefits, and discussion of treatment choices. No major barriers to understanding were identified. The patient expressed understanding and agreement with the above treatment plan. The patient was made aware they should contact our office by phone for worsening of their current condition, the appearance of new symptoms, or with any questions or concerns. Compliance is encouraged with any medications and follow up testing that is ordered. It is a privilege to be allowed the opportunity to participate in? your urological care.? Again, if you have any questions or concerns If you have any questions or concerns please do not hesitate to contact me. The office is [phone]. This note is constructed using voice recognition software. While every effort has been made to ensure accuracy rubber press operator errors may have been included. Yours sincerely, HIRAM Meyer Coding Level of Care Code Est Pt Level 3 (21112) Diagnoses Mixed incontinence urge and stress N39.46 DOMINIK (stress urinary incontinence, female) N39.3 CPT Codes Post Residual Void - PVR CPT Code: 98848-Gaju Void Residual by ultrasound ([id number])
== END 2024-04-09 14:03 | disposition home or self-care (01) ==
PROVIDERS: PCP Family Medicine; Visit Provider Nurse Practitioner Family
DX: N39.46 Mixed incontinence (principal); N39.3 Stress incontinence (female) (male)
CPT/HCPCS: 99213

== ENCOUNTER → 2024-04-09 13:21 | Outpatient (BNVA) | payer OTHER, SELFPAY | PROVIDERS: PCP Family Medicine; Visit Provider Nurse Practitioner Family | DX: N39.46 Mixed incontinence (principal); N32.81 Overactive bladder | CPT/HCPCS: 51798; 99212 ==

== ENCOUNTER 2024-05-18 11:03 | Outpatient (AMB) | payer OTHER, SELFPAY ==
--- NOTE | 2024-05-18 07:58 | A.OFFVIS_ITS ---
Intake Visit Reasons: Former Smoker Allergies gabapentin Allergy (Unknown, Verified 04/09/24 14:02) Unknown codeine [CODEINE] Adverse Reaction (Intermediate, Verified 04/09/24 14:02) NAUSEA & VOMITING nicotine Adverse Reaction (Verified 04/09/24 14:02) Itching HPI HPI Former Smoker: Details: Initial visit for this 63yo former smoker with a 75PYH. Patient started smoking at age 18 for 44 years. Max 3ppd for 20 year then 1ppd till she quit. She quit 10/2022. . Reports daily marijuana use. Notes second hand smoke exposure - . Denies exposure to diesel fumes - worked at [employer]. . Denies known family history of lung cancer. Denies personal history of cancers. Denies chest CT in last year. . Denies recent travel outside the [place]. Denies recent respiratory illness or recent hospitalization for respiratory issues. Reports testing positive for COVID. Admits receiving COVID Vaccine. . Denies fever, chills, new/worsening cough, hemoptysis, hoarseness or dysphagia. Denies significant chest pain, significant dyspnea or unintentional weight loss. Patient Lung Cancer Screening Questionnaire reviewed with patient by provider. . Shared Decision Making Completed. Patient meets criteria. Discussed in detail with patient, the risk vs benefit of LDCT screening. Patient consents to proceed with scan. Discussed and encouraged continued smoking cessation. [facility] Medical History (Updated 05/18/24 @ 11:10 by Kaia Leung PA-C) Depression Thyroid disease Hyperlipidemia Personal history of nicotine dependence DOMINIK (stress urinary incontinence, female) Urge incontinence Surgical History (Updated 04/02/24 @ 14:25 by Kaia Leung PA-C) History of colonoscopy History of tubal ligation Social History (Updated 05/18/24 @ 11:10 by Kaia Leung PA-C) Alcohol intake: never Patient Tobacco Use Status: Former Tobacco user Years Smoked: (onset 18, 1-3ppd x 44yrs, 75pyh, quit 10/2022) Substance Use Type: Marijuana Assessment & Plan Assessment & Plan (1) Personal history of nicotine dependence: Comment: (onset 18, 1-3ppd x 44yrs, 75pyh, quit 10/2022) Code(s): Z87.891 - Personal history of nicotine dependence Category: Medical Plan: - SDM visit completed today in office. - Patient meets criteria for LDCT for lung cancer screening purposes and is asymptomatic. - Smoking cessation counseling offered. Patients can always call [phone]. - Will arrange for a LDCT scan of the chest for screening purposes at [facility]. - Risks, benefits, and alternatives were discussed in detail and the patient agrees to proceed. - Risks discussed include but are not limited to: radiation exposure, anxiety during testing and while awaiting results, false negatives, false positives and possibility of additional intervention such as further imaging or surgical procedures for benign disease. - Benefits are obviously detection of lung cancer at an early stage which can lead to improved outcomes. - Discussed the importance of screening program compliance with adherence to yearly LDCT scan as scheduled - or sooner interval scans for personalized screening regimen. - Discussed follow up plan. Our office will send a letter discussing results and if needed set up phone call and office visit based on CT findings. - Patient educated on results categorization and the management decisions for suspicious findings potentially found on the screening LDCT scan. Any patient with a Lung RADS score of 3 or 4 will be reviewed by a multidisciplinary team at [facility] to form a plan of action in regards to scan findings. - If further work up is warranted for a suspicious lung finding this will be followed by the Lung Cancer Screening program in conjunction with the Thoracic Surgery Department at [facility]. - A copy of the office note and LDCT will be sent to the patient's PCP - as well as documentation on any associated further plans of care. - Incidental findings on LDCT are the PCP's responsibility. These findings are indicated with an S finding on the LDCT Assessment. A note discussing the findings will be sent to the PCP who is then responsible for further management. - All questions answered.? Coding Level of Care Code Lung Cancer Screening G0296 Diagnoses Personal history of nicotine dependence Z87.891
== END 2024-05-18 11:45 | disposition home or self-care (01) ==
PROVIDERS: PCP Family Medicine; Visit Provider Physician Assistant Medical
DX: Z87.891 Personal history of nicotine dependence (principal)
CPT/HCPCS: G0296

== ENCOUNTER 2024-05-18 11:18 | Outpatient (REF) | payer OTHER, SELFPAY | END 2024-05-18 11:19 | disposition home or self-care (01) | LOC: HO.CT 11:18 | PROVIDERS: PCP Family Medicine; Visit Provider Physician Assistant Medical | DX: Z12.2 Encounter for screening for malignant neoplasm of respiratory organs (principal); Z87.891 Personal history of nicotine dependence | CPT/HCPCS: 71271; G0296 ==

== ENCOUNTER → 2024-05-18 11:19 | Outpatient (BNV) | payer OTHER, SELFPAY | PROVIDERS: PCP Family Medicine; Visit Provider Radiology Diagnostic Radiology | DX: R91.1 Solitary pulmonary nodule (principal); I25.84 Coronary atherosclerosis due to calcified coronary lesion; Z87.891 Personal history of nicotine dependence | CPT/HCPCS: 71271 ==

== ENCOUNTER 2024-07-23 12:55 | Outpatient (REF) | payer OTHER, SELFPAY ==
--- NOTE | ~2024-07-23 | XR_ITS ---
EXAMINATION: XR CHEST CLINICAL INFORMATION: COUGH,COPD. COMPARISON: 09/26/2021. TECHNIQUE: 2 views of the chest were obtained. FINDINGS: The cardiac, hilar, and mediastinal contours are normal. The lungs are mildly diffusely hyperaerated, however clear bilaterally. There is no pneumothorax or pleural effusion. There is no focal osseous or soft tissue abnormality. Minimal chronic appearing compression deformity in the mid thoracic spine. XR/XR chest 2V IMPRESSION: No active pulmonary disease. COPD. Electronically signed by: Darryl Gaffney MD 07/23/2024 01:16 PM YAZMIN
== END 2024-07-23 12:56 | disposition home or self-care (01) ==
LOC: HO.XRAY 12:55
PROVIDERS: PCP Family Medicine; Visit Provider Family Medicine
DX: R05.9 Cough, unspecified (principal); J44.9 Chronic obstructive pulmonary disease, unspecified
CPT/HCPCS: 71046

== ENCOUNTER → 2024-07-23 13:00 | Outpatient (BNV) | payer OTHER, SELFPAY | PROVIDERS: PCP Family Medicine; Visit Provider Radiology Diagnostic Radiology | DX: R05.9 Cough, unspecified (principal) | CPT/HCPCS: 71046 ==

== ENCOUNTER 2024-08-06 11:39 | Outpatient (REF) | payer OTHER, SELFPAY ==
[2024-08-06 11:50] LABS: MANUAL DIFF FLAG NO
[2024-08-06 12:23] LABS: Basophils Percent Auto 0.3 % (0-2); Eosinophils Absolute Auto 0.1 X10*3/uL (0.0-0.4); Eosinophils Percent Auto 1.5 % (0-4); Hematocrit 39.8 % (37.0-47.0); Hemoglobin 13.5 g/dl (12.0-16.0); Imm Gran Abs Auto 0.03 X10*3/uL (0.00-0.03); Imm Gran Pct Auto 0.4 % (0.0-0.4); Lymphocytes Absolute Auto 2.2 X10*3/uL (1.2-4.9); Lymphocytes Percent Auto 29.8 % (20-40); Mean Corpuscular HGB Conc 33.9 g/dl (31.0-35.0); Mean Corpuscular Volume 88.4 fL (80.0-98.0); Mean Platelet Volume 10.3 fL (9.4-12.3); Monocytes Absolute Auto 0.6 X10*3/uL (0.1-1.2); Neutrophils Absolute Auto 4.4 x10*3/uL (2.0-8.3); Platelet Count 289 X10*3/uL (160-400); Red Cell Distribution Width 12.8 % (11.0-16.0); White Blood Count 7.3 X10*3/uL (4.8-10.8)
[2024-08-06 12:59] LABS: Alanine Aminotransferase 17 U/L (0-31); Anion Gap 12 (12-20); Aspartate Amino Transferase 27 U/L (5-31); Blood Urea Nitrogen 8 mg/dL (9-16); Carbon Dioxide 26 mmol/L (22-29); Chloride 107 mmol/L (96-108); Estimated Glomerular Filt Rate > 60; Potassium 4.1 mmol/L (3.3-5.1); Sodium 141 mmol/L (135-145)
[2024-08-06 13:14] LABS: Free T4 (Free Thyroxine) 1.24 ng/dL (0.71-1.85); Thyroid Stimulating Hormone 0.15 uIU/mL (0.32-4.0)
== END 2024-08-06 11:40 | disposition home or self-care (01) ==
LOC: HO.LAB 11:39
PROVIDERS: PCP Family Medicine; Visit Provider Family Medicine
DX: I10 Essential (primary) hypertension (principal); E78.00 Pure hypercholesterolemia, unspecified; E03.9 Hypothyroidism, unspecified; R06.02 Shortness of breath
CPT/HCPCS: 36415; 80051; 82550; 82565; 84439; 84443; 84450; 84460; 84520; 85025

== ENCOUNTER 2024-10-08 12:28 | Outpatient (AMB) | payer OTHER, SELFPAY ==
--- NOTE | 2024-10-08 12:36 | MHC.OFFVIS ---
Intake Visit Reasons: 6m/PVR Allergies gabapentin Allergy (Unknown, Verified 04/09/24 14:02) Unknown codeine [CODEINE] Adverse Reaction (Intermediate, Verified 04/09/24 14:02) NAUSEA & VOMITING nicotine Adverse Reaction (Verified 04/09/24 14:02) Itching Medication List - Last Reconciled 10/08/24 by HIRAM Meyer albuterol sulfate 0.63 mg (3 mL) inhalation QID PRN albuterol sulfate 90 mcg/actuation 1 inh inhalation QID PRN clonazepam 1 mg PO BID PRN diltiazem HCl CD 180 mg PO DAILY fluoxetine 20 mg PO DAILY fluoxetine 40 mg PO DAILY hydrocodone-acetaminophen 5-325 mg 1 tab PO Q4-6H PRN ibuprofen 800 mg PO Q12H PRN levothyroxine (Synthroid) 125 mcg PO DAILY loratadine 10 mg PO DAILY mirabegron ER (Myrbetriq) 25 mg PO DAILY 90 days nebulizers (AeroEclipse II Nebulizer) As directed olanzapine 10 mg PO BEDTIME omeprazole 20 mg PO QPM simvastatin 20 mg PO BEDTIME trazodone mg PO HPI Comments Details: Antonieta is a pleasant 63 year old female patient of who has a PMH of depression, thyroid disease, hyperlipidemia, and nicotine dependence quit 10/2022. She presents to the office today for follow-up of her overactive bladder stress incontinence. In discussion with the patient today she reports to be doing and feeling well. She denies having had any bothersome urinary issues or concerns since her last office visit here. She discusses how Myrbetriq has been extremely helpful in episodes of urinary urgency and frequency she had been experiencing. She does continue to report intermittent episodes of stress incontinence however feels they are manageable. We did discuss treatment options and risks and benefits of these treatment options. In office urinalysis results reviewed with the patient today. Initial PVR 113 mL however patient was able to double void and PVR 3 mL. She denies urinary urgency, urinary frequency, nocturia, hematuria, dysuria, foul smelling urine, changes to urinary stream, flank pain, fever, and or chills. She otherwise offers no other issues or concerns at this time. [facility] Medical History Depression Thyroid disease Hyperlipidemia Personal history of nicotine dependence DOMINIK (stress urinary incontinence, female) Urge incontinence Surgical History (Updated 04/02/24 @ 14:25 by Kaia Leung PA-C) History of colonoscopy History of tubal ligation Social History (Updated 05/18/24 @ 11:10 by Kaia Leung PA-C) Alcohol intake: never Patient Tobacco Use Status: Former Tobacco user Years Smoked: (onset 18, 1-3ppd x 44yrs, 75pyh, quit 10/2022) Substance Use Type: Marijuana Review of Systems Const All systems reviewed & are unremarkable except as noted in HPI and below Physical Exam Const General: cooperative, healthy appearing, comfortable, no acute distress, well developed, alert and awake Orientation/consciousness: patient oriented x3 Limitations: no limitations HEENT Head: Yes normal to inspection, Yes normocephalic and Yes atraumatic Ears: hearing grossly normal bilaterally Eyes General: appearance normal, both eyes and all related structures Neck Neck: Yes normal visual inspection and Yes trachea midline Chest Chest palpation & inspection: normal inspection of the chest Resp Effort & Inspection: normal respiratory effort and able to speak in complete sentences Cardio Rate: regular rate GI Inspection: Yes normal to inspection General: Yes no CVA tenderness Back/Spine/Pelvis Back: no CVA tenderness Skin General skin exam: no rashes or lesions noted Neuro General: patient oriented x3 Extrem General: Yes normal to inspection Psych Appearance: grossly normal and well kempt Mental Status: mental status grossly normal Speech and movement: Normal speech and movement present and Clear speech present Affect: normal affect Attitude: cooperative Thought process: Normal thought process present Thought content: Normal thought content present Insight: Fair insight present (Psych) Judgement: Fair judgement present (Psych) Office Procedures Post Void Residual Post Residual Void Post Void Residual (PVR): 3 [id number] Void Residual by ultrasound Results AMB Urinalysis, Automated UA Leukoctes 0 Vladislav/uL Last Edit by Lo Washington CMA on 10/08/24 13:09 UA Nitrite Negative Last Edit by Lo Washington CMA on 10/08/24 13:09 UA Urobilinogen 0.2 mg/dL Last Edit by Lo Washington CMA on 10/08/24 13:09 UA Protein 30 mg/dL Last Edit by Lo Washington CMA on 10/08/24 13:09 UA pH 6.5 Last Edit by Lo Washington CMA on 10/08/24 13:09 UA Blood 0 Cr/uL Last Edit by Lo Washington CMA on 10/08/24 13:09 UA Specific Ogilvie 1.015 Last Edit by Lo Washington CMA on 10/08/24 13:09 UA Ketone Negative Last Edit by Lo Washington CMA on 10/08/24 13:09 UA Bilirubin 0 mg/dL Last Edit by Lo Washington CMA on 10/08/24 13:09 UA Glucose 0 mg/dL Last Edit by Lo Washington CMA on 10/08/24 13:09 Results Reviewed Results Reviewed: Laboratory Last Values Urine pH (Auto) 6.5 10/08/24 13:05 Specific Ogilvie (Auto) 1.015 10/08/24 13:05 Urine Protein (Auto) 30 mg/dL 10/08/24 13:05 Glucose (UA)(Auto) 0 mg/dL 10/08/24 13:05 Urine Ketones (Auto) Negative 10/08/24 13:05 Urine Blood (Auto) 0 Cr/uL 10/08/24 13:05 Urine Nitrite (Auto) Negative 10/08/24 13:05 Urine Bilirubin (Auto) 0 mg/dL 10/08/24 13:05 Urine Urobilinogen (Auto) 0.2 mg/dL 10/08/24 13:05 Leukocyte Esterase (Auto) 0 Vladislav/uL 10/08/24 13:05 Assessment & Plan Assessment & Plan (1) Mixed incontinence urge and stress: Code(s): N39.46 - Mixed incontinence Category: Medical (2) DOMINIK (stress urinary incontinence, female): Code(s): N39.3 - Stress incontinence (female) (male) Category: Medical Plan In office urinalysis results reviewed with the patient today; as noted above. Initial PVR 113 mL however upon 2nd void 3 mL. Continue Myrbetriq as discussed and prescribed. We discussed further treatment options of stress incontinence and risks and benefits of these treatment options. Will continue with surveillance monitoring as patient reports be happy with current voiding parameters on 25 mg of Myrbetriq. She denies any bothersome urinary issues. Follow-up in 1 year with PVR; or sooner with any issues, concerns, and or questions. Orders: Orders AMB Urinalysis Automated Today Z13.9 - Encounter for screening, unspecified AMB Post Void Residual by ultrasound Today N39.46 - Mixed incontinence Patient Instructions: The patient had an opportunity to ask questions regarding the treatment plan. All questions were answered. Physical exam, labs, and imaging were discussed and reviewed in detail. As well as risks, benefits, and discussion of treatment choices. No major barriers to understanding were identified. The patient expressed understanding and agreement with the above treatment plan. The patient was made aware they should contact our office by phone for worsening of their current condition, the appearance of new symptoms, or with any questions or concerns. Compliance is encouraged with any medications and follow up testing that is ordered. It is a privilege to be allowed the opportunity to participate in? your urological care.? Again, if you have any questions or concerns If you have any questions or concerns please do not hesitate to contact me. The office is [phone]. This note is constructed using voice recognition software. While every effort has been made to ensure accuracy chute tapper errors may have been included. Yours sincerely, HIRAM Meyer Coding Level of Care Code Est Pt Level 3 (71879) Complex EM visit Add On G2211 Diagnoses Mixed incontinence urge and stress N39.46 DOMINIK (stress urinary incontinence, female) N39.3 CPT Codes Post Residual Void - PVR CPT Code: 92646-Ldlr Void Residual by ultrasound ([id number])
== END 2024-10-08 13:19 | disposition home or self-care (01) ==
LOC: HO.HUSH 12:28
PROVIDERS: PCP Family Medicine; Visit Provider Nurse Practitioner Family
DX: N39.46 Mixed incontinence (principal); Z13.9 Encounter for screening, unspecified
CPT/HCPCS: 99213; G2211

== ENCOUNTER → 2024-10-08 12:28 | Outpatient (BNVA) | payer OTHER, SELFPAY | PROVIDERS: PCP Family Medicine; Visit Provider Nurse Practitioner Family | DX: N39.46 Mixed incontinence (principal) | CPT/HCPCS: 51798; 81003; 99212 ==

== ENCOUNTER 2025-01-14 11:39 | Outpatient (REF) | payer OTHER, SELFPAY ==
--- NOTE | ~2025-01-14 | MM_ITS ---
EXAMINATION: MM SCREENING DIGITAL BREAST TOMOSYNTHESIS, BILATERAL CLINICAL INFORMATION: Screening. Asymptomatic. COMPARISON: Comparison made to multiple prior, most recent November 16, 2023, and most remote February 15, 2019. TECHNIQUE: Digital breast tomosynthesis is performed in both the craniocaudal and mediolateral oblique views along with computer-aided detection (CAD). FINDINGS: BREAST COMPOSITION: The breasts are heterogeneously dense, which may obscure small masses (ACR BI-RADS breast composition Category c). BILATERAL BREASTS: No significant masses, suspicious calcifications or other abnormalities are seen in either breast. MM/MM tomosynthesis screening BI IMPRESSION: BILATERAL BREASTS: Negative, no mammographic evidence of malignancy. Normal interval follow-up is recommended in 12 months. ASSESSMENT: BI-RADS 1 - Negative RECOMMENDATION: Routine annual mammography screening. FOLLOW-UP: 1 year F/U This examination should not preclude the clinical evaluation of a suspicious palpable abnormality. This patient's information was entered into a reminder system with a target due date for their next mammogram. Electronically signed by: Analilia Domingo MD 01/15/2025 09:22 PM EDT
== END 2025-01-14 11:40 | disposition home or self-care (01) ==
LOC: HO.MAMMO 11:39
PROVIDERS: PCP Physician Assistant; Visit Provider Internal Medicine
DX: Z12.31 Encounter for screening mammogram for malignant neoplasm of breast (principal)
CPT/HCPCS: 77063; 77067

== ENCOUNTER → 2025-01-14 11:45 | Outpatient (BNV) | payer OTHER, SELFPAY | PROVIDERS: PCP Physician Assistant; Visit Provider Radiology Body Imaging | DX: Z12.31 Encounter for screening mammogram for malignant neoplasm of breast (principal) | CPT/HCPCS: 77063; 77067 ==

== ENCOUNTER 2025-02-18 12:43 | Outpatient (AMB) | payer OTHER, SELFPAY ==
--- NOTE | 2025-02-18 12:50 | MHC.PC.OV ---
Vital Signs 02/18/25 13:02 Height 5 ft 8.5 in Weight 209 lb BMI 31.3 BP 112/72 Blood Pressure Location Rt brachial Position Sitting Respiration 18 Pulse 73 Pulse Source Pulse Oximeter Temp 98 F Temp Source Temporal Artery Scan Pulse Oximetry (%) 96 Oxygen Delivery Method Room Air Intake Visit Reasons: Routine / Dr Lester Candy Dipper Required: No Accompanied by: Self / Same As Patient Allergies gabapentin Allergy (Unknown, Verified 02/18/25 12:50) Unknown codeine (CODEINE) Adverse Reaction (Intermediate, Verified 02/18/25 12:50) NAUSEA & VOMITING nicotine Adverse Reaction (Verified 02/18/25 12:50) Itching Medication List - Last Reconciled 02/24/25 by BILLIE Henry acetaminophen (Tylenol) 325 mg PO QID PRN albuterol sulfate 0.63 mg (3 mL) inhalation QID PRN albuterol sulfate 90 mcg/actuation 1 inh inhalation QID PRN clonazepam 0.5 mg PO BID PRN diltiazem HCl CD 240 mg PO DAILY fluoxetine 40 mg PO DAILY fluticasone propionate 50 mcg/actuation 2 sprays intranasal DAILY PRN ibuprofen 800 mg PO Q12H PRN mirabegron ER (Myrbetriq) 25 mg PO DAILY 90 days nebulizers (AeroEclipse II Nebulizer) As directed olanzapine 2.5 mg PO BEDTIME omeprazole 20 mg PO BID simvastatin 20 mg PO BEDTIME Synthroid (levothyroxine) 125 mcg PO DAILY NS trazodone mg PO varenicline tartrate 1 mg PO BID Tobacco use date assessed: 02/18/25 Dental Screening Dental Screen Date: 02/18/25 Did you have a dental visit in the last 12 months?: No Did you have a dental problem in the last 6 months where you did not have access to dental care?: No Was dental information given to patient?: Patient has dentist HPI HPI Comments History of Present Illness Details The patient is a 64-year-old female with HTN, Asthma/COPD, MDD/anxiety, HLD, Hypothyroidism, Urinary incontinence, GERD, alcohol use and smoking presenting for management of multiple chronic conditions and preventative care. She has a history of MDD/anxiety, managed with fluoxetine, olanzapine, trazodone, and clonazepam, and is under psychiatric and therapeutic care. Her hypothyroidism requires Synthroid, with regular monitoring due to sensitivity to generic formulations. TSH in 07/2024 was 0.15. Hypertension is controlled with diltiazem, recently increased to 240 mg, maintaining optimal blood pressure levels. BP today was 112/72. Allergic rhinitis symptoms have led to a medication change from loratadine to levocetirizine due to reduced efficacy. She is also on Flonase. Asthma management includes albuterol use, with increased frequency attributed to smoking, which she plans to cease with Chantix. She has been smoking since age 18 and is preparing to quit using Chantix. She is enrolled in [facility]. Hyperlipidemia is managed with simvastatin, and gastroesophageal reflux disease is controlled with omeprazole, recently increased to twice daily. Overactive bladder symptoms are managed with Myrbetriq. She needs medications refilled. Preventative care includes annual lung cancer screening and a scheduled colonoscopy in 2026. Referral will be submitted to [facility] for PAP. [facility] Medical History (Updated 02/24/25 @ 23:24 by BILLIE Henry) Anxiety Depression GERD without esophagitis Hyperlipidemia Hypertension Obesity (BMI 30.0-34.9) Personal history of nicotine dependence DOMINIK (stress urinary incontinence, female) Thyroid disease Urge incontinence Surgical History (Updated 02/15/25 @ 15:46 by Eve Moffett) History of colonoscopy (~05/10/17) History of tubal ligation Social History (Updated 05/18/24 @ 11:10 by Kaia Leung PA-C) Housing: Apartment Alcohol intake: never Patient Tobacco Use Status: Former Tobacco user Years Smoked: (onset 18, 1-3ppd x 44yrs, 75pyh, quit 10/2022) e-Cigarette/Vaping Use: Currently Using Substance Use Type: Marijuana service: No Current occupational status: retired Questionnaire PHQ-9 Over the last 2 weeks, how often have you been bothered by any of the following problems? 1. Little interest or pleasure in doing things: not at all 2. Feeling down, depressed, or hopeless: several days 3. Trouble falling or staying asleep, or sleeping too much: not at all 4. Feeling tired or having little energy: not at all 5. Poor appetite or overeating: not at all 6. Feeling bad about yourself - or that you are a failure or have let yourself or your family down: several days 7. Trouble concentrating on things, such as reading the newspaper or watching television: not at all 8. Moving or speaking so slowly that other people could have noticed. Or the opposite - being so fidgety or restless that you have been moving around a lot more than usual: several days 9. Thoughts that you would be better off or of hurting yourself in some way: not at all Total score: 3 Depression Screening Interpretation: Negative Depression Screening Done: Yes Source: Developed by Drs. Michael Dhillon, Swetha Allen, Agustin Richmond and colleagues, with an educational roxi from [employer]. Thrive Questionnaire Date Thrive assessed: 02/18/25 I am a: Patient What is your living situation today?: I have a steady place to live Within the past 12 months, did the food you bought not last and you didn't have the money to get more?: Never true Within the past 12 months, did you worry whether your food would run out before you got money to buy more?: Never true Do you have trouble paying for medicines?: No Do you have trouble getting transportation to medical appointments?: No Do you have trouble paying your heating and electricity bill?: No Do you have trouble taking care of your child, family member or friend?: No Do you have trouble with day-to-day activities such as bathing, preparing meals, shopping, managing finances, etc.?: No Are you currently unemployed and looking for a job?: No Are you interested in more education?: No THRIVE Score: 0 AUDIT C Alcohol Use Questionnaire (AUDIT-C) 1. How often do you have a drink containing alcohol?: Never 3. How often do you have six or more drinks on one occasion?: Never Total Score: 0 DEEPTI-7 AMB Questionnaire DEEPTI-7 Date DEEPTI - 7 assessed: 02/18/25 Feeling nervous, anxious, or on edge: 1 = Several days Not being able to stop or control worryin = Not at all Worrying too much about different things: 1 = Several days Trouble relaxin = Not at all Being so restless that it is hard to sit still: 0 = Not at all Becoming easily annoyed or irritable: 0 = Not at all Feeling afraid as if something awful might happen: 0 = Not at all Total DEEPTI-7 score (0-4 normal; 5-9 mild; 10-14 moderate; 15-21 severe): 2 Source: Developed by Drs. Michael Dhillon, Swetha Allen, Agustin Richmond and colleagues, with an educational roxi from [employer]. Review of Systems Const Details: CONSTITUTIONAL Negative HEAD/NECK Negative EAR/NOSE/MOUTH/THROAT Reports allergic rhinitis symptoms, considering medication change RESPIRATORY Reports asthma, uses albuterol as needed CARDIOVASCULAR Denies chest pain, reports well-controlled hypertension GASTROINTESTINAL Reports gastroesophageal reflux, controlled with omeprazole GENITOURINARY Reports overactive bladder, managed with Myrbetriq MUSCULOSKELETAL Negative NEUROLOGICAL Negative PSYCHIATRIC Reports MDD/anxiety, managed with medication and therapy Physical exam (Primary Care) Vital Signs: Last Vital Signs Temp 98 F 02/18/25 13:02 Pulse 73 02/18/25 13:02 Resp 18 02/18/25 13:02 BP 112/72 02/18/25 13:02 Pulse Ox 96 02/18/25 13:02 Oxygen Delivery Method Room Air 02/18/25 13:02 BMI result Body Mass Index 31.3 GENERAL Well developed, obese, in no apparent distress HEENT Head-Normocephalic Eyes- PERRLA, EOMI, Conjuctiva clear, lids WNL Ears- Canals clear, TMs WNL Mouth/Throat-No lesions, no erythema, no exudate Neck- Supple, No lymphadenopathy, thyroid WNL RESPIRATORY Normal I:E, Clear to auscultation CARDIOVASCULAR Regular, rate and rhythm, No murmurs or rubs GASTROINTESTINAL Soft, nontender, normal bowel sounds, no masses MUSCULOSKELETAL Back- nontender Joints- no pain swelling or deformity NEUROLOGICAL Gait normal PSYCHIATRIC Oriented to person, place and time Mood and affect WNL Appearance WNL Speech WNL Thought processes WNL Tobacco/Smoking Status: Tobacco use Status Tobacco use date assessed 02/18/25 02/18/25 13:05 Patient Tobacco Use Status Former Tobacco user 02/18/25 13:05 e-Cigarette/Vaping Use Currently Using 02/18/25 13:05 PHQ-9: PHQ-9 Score PHQ-9: Total score 3 02/18/25 13:28 Depression Screening Interpretation: Negative Thrive Assessment: Date of Thrive Assessment Date Thrive assessed 09/22/25 09/22/25 13:28 Results Reviewed Results Reviewed: - Lung cancer screening: Normal Coding Level of Care Code New Pt New Pt Level 4 (91375) Patient Type New Diagnoses Primary hypertension I10 Hypertension type: primary hypertension Pure hypercholesterolemia E78.00 Hyperlipidemia type: pure hypercholesterolemia Recurrent major depressive disorder, in partial remission F33.41 Depression Type: major depressive disorder Major depression recurrence: recurrent Active/Remission status: in partial remission Anxiety F41.9 Mild intermittent asthma without complication J45.20 Asthma severity: mild Asthma persistence: intermittent Asthma complication type: uncomplicated Thyroid disease E07.9 Mixed incontinence urge and stress N39.46 Personal history of nicotine dependence Z87.891 GERD without esophagitis K21.9 Obesity (BMI 30.0-34.9) E66.811 Time Spent (min) 35 Comment Time spent on chart review, medication reconciliation, H&P, patient education, orders Assessment & Plan Assessment & Plan (1) Hypertension: Comment: BP today was 112/72 Code(s): I10 - Essential (primary) hypertension Category: Medical Qualifiers: Hypertension type: primary hypertension Qualified Code(s): I10 - Essential (primary) hypertension Plan: Hypertension is managed with diltiazem, recently increased to 240 mg, maintaining optimal blood pressure levels. Patient will continue current medications. Will monitor. Patient will follow up in 3 months. (2) Hyperlipidemia: Code(s): E78.5 - Hyperlipidemia, unspecified Category: Medical Qualifiers: Hyperlipidemia type: pure hypercholesterolemia Qualified Code(s): E78.00 - Pure hypercholesterolemia, unspecified Plan: Hyperlipidemia is managed with simvastatin. (3) Depression: Code(s): F32.A - Depression, unspecified Category: Medical Qualifiers: Depression Type: major depressive disorder Major depression recurrence: recurrent Active/Remission status: in partial remission Qualified Code(s): F33.41 - Major depressive disorder, recurrent, in partial remission Plan: The patient is under psychiatric and therapeutic care for anxiety, managed with fluoxetine, olanzapine, trazodone, and clonazepam. (4) Anxiety: Code(s): F41.9 - Anxiety disorder, unspecified Category: Medical Plan: The patient is under psychiatric and therapeutic care for anxiety, managed with fluoxetine, olanzapine, trazodone, and clonazepam. (5) Asthma: Code(s): J45.909 - Unspecified asthma, uncomplicated Category: Medical Qualifiers: Asthma severity: mild Asthma persistence: intermittent Asthma complication type: uncomplicated Qualified Code(s): J45.20 - Mild intermittent asthma, uncomplicated Plan: Asthma management includes albuterol use, with increased frequency attributed to smoking, which she plans to cease with Chantix. (6) Thyroid disease: Code(s): E07.9 - Disorder of thyroid, unspecified Category: Medical Plan: The patient requires Synthroid for hypothyroidism, with regular monitoring due to sensitivity to generic formulations. TSH requested (7) Mixed incontinence urge and stress: Code(s): N39.46 - Mixed incontinence Category: Medical Plan: Bladder symptoms are managed with Myrbetriq. Patient will continue current medications. Will monitor. Patient will follow up in 3 months. (8) Personal history of nicotine dependence: Comment: (onset 18, 1-3ppd x 44yrs, 75pyh, quit 10/2022) Code(s): Z87.891 - Personal history of nicotine dependence Category: Medical Plan: The patient has a long history of smoking and plans to quit using Chantix starting February 27. (9) GERD without esophagitis: Code(s): K21.9 - Gastro-esophageal reflux disease without esophagitis Category: Medical Plan: Gastroesophageal reflux disease is controlled with omeprazole, recently increased to twice daily. (10) Obesity (BMI 30.0-34.9): Comment: BMI today was 31.3 Code(s): E66.811 - Obesity, class 1 Category: Medical Plan: Discussed the health risks of obesity with the patient. Reviewed benefits of even moderate weight loss with the patient. Patient will gradually try and increase exercise to 30-40 min 5-7 times per week. We discussed the patient adding more fruits and vegetables to their diet. Will monitor weight and follow up in 3 months. Plan During the visit, we discussed the management of the patient's anxiety with her current medications and the importance of regular psychiatric follow-up. We reviewed her hypothyroidism management, emphasizing the need for brand-name Synthroid and regular thyroid function tests. The patient's hypertension is well-controlled with diltiazem, and we discussed the recent dosage increase. For allergic rhinitis, we decided to switch from loratadine to levocetirizine due to reduced efficacy. We addressed her asthma management, noting the increased use of albuterol and her plan to quit smoking with Chantix. We also discussed her hyperlipidemia and gastroesophageal reflux disease management, with simvastatin and omeprazole, respectively. Preventative care measures, including lung cancer screening and the upcoming colonoscopy, were reviewed. Orders: Orders TSH reflex Free T4 02/18/25 E07.9 - Disorder of thyroid, unspecified Referrals [employer] SALES MANAGER Referral Z12.4 - Encounter for screening for malignant neoplasm of cervix Medications: New fluticasone propionate 50 mcg/actuation 2 sprays intranasal DAILY PRN 16 grams 11RF allergy symptoms ibuprofen 800 mg PO Q12H PRN 60 tabs 3RF pain simvastatin 20 mg PO BEDTIME 90 tabs 2RF acetaminophen (Tylenol) 325 mg PO QID PRN 60 tabs 3RF pain diltiazem HCl CD 240 mg PO DAILY 90 caps 2RF omeprazole 20 mg PO BID 180 caps 2RF Changed From levothyroxine 125 mcg PO DAILY To Synthroid (levothyroxine) 125 mcg PO DAILY 90 tabs 2RF NS Refilled albuterol sulfate 0.63 mg (3 mL) inhalation QID PRN 75 mL 0RF shortness of breath or wheezing J44.9 - Chronic obstructive pulmonary disease, unspecified, J45.909 - Unspecified asthma, uncomplicated albuterol sulfate 90 mcg/actuation 1 inh inhalation QID PRN 8.5 grams 0RF shortness of breath or wheezing J44.9 - Chronic obstructive pulmonary disease, unspecified, J45.909 - Unspecified asthma, uncomplicated mirabegron ER (Myrbetriq) 25 mg PO DAILY 90 tabs 4RF 90 days N30.10 - Interstitial cystitis (chronic) without hematuria, N32.81 - Overactive bladder, R35.1 - Nocturia, R39.15 - Urgency of urination Patient Instructions: - Continue current medications as prescribed. - Start levocetirizine for allergies as soon as it is available. - Begin Chantix on February 27 to aid smoking cessation. - Schedule and complete blood work for thyroid function before the next visit. - Follow up with the security investigator for a Pap smear. - Return for a follow-up appointment in three months.
[2025-02-18 13:02] VITALS: BP 112/72; PULSE 73; RESP 18; TEMP 36.6; O2SAT 96; BMI 31.3
== END 2025-02-18 14:37 | disposition home or self-care (01) ==
PROVIDERS: PCP Physician Assistant Medical; Visit Provider Physician Assistant Medical
DX: I10 Essential (primary) hypertension (principal); E78.00 Pure hypercholesterolemia, unspecified; F33.41 Major depressive disorder, recurrent, in partial remission; F41.9 Anxiety disorder, unspecified; J45.20 Mild intermittent asthma, uncomplicated; E66.811 Obesity, class 1; Z68.31 Body mass index [BMI] 31.0-31.9, adult; E07.9 Disorder of thyroid, unspecified; N39.46 Mixed incontinence; Z87.891 Personal history of nicotine dependence; K21.9 Gastro-esophageal reflux disease without esophagitis

== ENCOUNTER → 2025-02-18 12:43 | Outpatient (BNVA) | payer OTHER, SELFPAY | PROVIDERS: PCP Physician Assistant; Visit Provider Physician Assistant Medical | DX: I10 Essential (primary) hypertension (principal); E78.00 Pure hypercholesterolemia, unspecified; F33.41 Major depressive disorder, recurrent, in partial remission; F41.9 Anxiety disorder, unspecified; J45.20 Mild intermittent asthma, uncomplicated; N39.46 Mixed incontinence; K21.9 Gastro-esophageal reflux disease without esophagitis; E66.811 Obesity, class 1; Z68.31 Body mass index [BMI] 31.0-31.9, adult; E03.9 Hypothyroidism, unspecified; Z87.891 Personal history of nicotine dependence; Z79.899 Other long term (current) drug therapy; Z13.31 Encounter for screening for depression; Z13.39 Encounter for screening examination for other mental health and behavioral disorders | CPT/HCPCS: 96127; 99202 ==

== ENCOUNTER 2025-02-26 12:36 | Outpatient (REF) | payer OTHER, SELFPAY ==
[2025-02-26 14:25] LABS: Free T4 (Free Thyroxine) 1.36 ng/dL (0.71-1.85)
== END 2025-02-26 12:37 | disposition home or self-care (01) ==
LOC: HO.LAB 12:36
PROVIDERS: PCP Physician Assistant Medical; Visit Provider Physician Assistant Medical
DX: E07.9 Disorder of thyroid, unspecified (principal)
CPT/HCPCS: 36415; 84439; 84443

== ENCOUNTER 2025-04-16 11:17 | Outpatient (REF) | payer OTHER, SELFPAY ==
[2025-04-16 13:46] LABS: Free T4 (Free Thyroxine) 1.28 ng/dL (0.71-1.85)
== END 2025-04-16 11:18 | disposition home or self-care (01) ==
LOC: HO.LAB 11:17
PROVIDERS: PCP Physician Assistant Medical; Visit Provider Physician Assistant Medical
DX: E03.9 Hypothyroidism, unspecified (principal); Z79.899 Other long term (current) drug therapy
CPT/HCPCS: 36415; 84439; 84443

== ENCOUNTER 2025-05-27 11:12 | Outpatient (REF) | payer OTHER, SELFPAY | END 2025-05-27 11:13 | LOC: HO.LAB 11:12 | PROVIDERS: PCP Physician Assistant Medical; Visit Provider Physician Assistant Medical | DX: E07.9 Disorder of thyroid, unspecified (principal) | CPT/HCPCS: 36415; 84443 ==

== ENCOUNTER 2025-05-28 10:55 | Outpatient (AMB) | payer OTHER, SELFPAY ==
[2025-05-28 11:02] VITALS: BP 128/80; PULSE 86; TEMP 36.3; O2SAT 98; BMI 32.2
--- NOTE | 2025-05-28 11:02 | A.OFFPC_ITS ---
Vital Signs 05/28/25 11:02 Height 5 ft 8.5 in Weight 215 lb BMI 32.2 BP 128/80 Blood Pressure Location Lt brachial Position Sitting Pulse 86 Pulse Source Pulse Oximeter Temp 97.4 F Temp Source Temporal Artery Scan Pulse Oximetry (%) 98 Oxygen Delivery Method Room Air Intake Visit Reasons: 3 month f/u Support Teacher Required: No Accompanied by: Self / Same As Patient Allergies gabapentin Allergy (Unknown, Verified 05/28/25 11:03) Unknown codeine (CODEINE) Adverse Reaction (Intermediate, Verified 05/28/25 11:03) NAUSEA & VOMITING nicotine Adverse Reaction (Verified 05/28/25 11:03) Itching Medication List - Last Reconciled 05/28/25 by BILLIE Henry acetaminophen 325 mg PO QID PRN albuterol sulfate 0.63 mg (3 mL) inhalation QID PRN albuterol sulfate 90 mcg/actuation 1 inh inhalation QID PRN clonazepam 0.5 mg PO BID PRN diltiazem HCl CD 240 mg PO DAILY fluoxetine 40 mg PO DAILY fluticasone propionate 50 mcg/actuation 2 sprays intranasal DAILY PRN ibuprofen 800 mg PO Q12H PRN levocetirizine 5 mg PO DAILY Myrbetriq ER (mirabegron) 25 mg PO DAILY 90 days NS nebulizers (AeroEclipse II Nebulizer) As directed olanzapine 2.5 mg PO BEDTIME omeprazole 20 mg PO BID simvastatin 20 mg PO BEDTIME Synthroid (levothyroxine) 100 mcg PO DAILY NS trazodone mg PO varenicline tartrate 1 mg PO BID Tobacco use date assessed: 05/28/25 Dental Screening Dental Screen Date: 05/28/25 Did you have a dental visit in the last 12 months?: No Did you have a dental problem in the last 6 months where you did not have access to dental care?: No HPI HPI Comments History of Present Illness Details History of Present Illness The patient is a 64-year-old female with HTN, Asthma/COPD, MDD/anxiety, HLD, Hypothyroidism, Urinary incontinence, GERD, alcohol use and smoking presenting for a follow-up visit for chronic condition management and health maintenance. She is on Diltiazem 240mg for HTN. Her BP today was 128/80 The patient has a history of hypothyroidism for about 20 years, which was diagnosed after she presented with dysphagia. She was treated with radioactive iodine at that time and has been on Synthroid since. Her TSH level recently improved to 0.6 from a prior level of 0.2, and she reports feeling more sleepy at times. Regarding substance use, the patient quit smoking cigarettes on February 27 and is using Chantix twice a day. She continues to smoke marijuana, which she has done for 46 years to manage anxiety, depression, sleep, and appetite. The patient reports intermittent low back ache, which is managed with one ib uprofen tablet daily as needed. She also experiences headaches, managed with Tylenol, and a persistent moving sensation in her side, which has now also occurred on the contralateral side. Medical History: - Hypothyroidism, treated with radioacti ve iodine ablation - Anxiety (self-reported, managed with m arijuana) - Depression (self-reported, managed wit h marijuana) - Insomnia (self-reported, managed with marijuana) Medications: - Synthroid for hypothyroidism - Chantix twice a day for smoking cessat ion - Ibuprofen as needed for low back pain - Tylenol as needed for headaches - Marijuana (smoked) for anxiety, depres robles, sleep, and appetite Family History: - Mother: Possible undiagnosed thyroid d isease - Sister: History of thyroid surgery Health Maintenance The patient is scheduled for a lung cancer screening tomorrow and has a Pap smear scheduled in July, as she is a few years overdue. She was advised to attend these appointments. Social History - Tobacco Use: Patient quit smoking ciga rettes on February 27 and is using Chantix. - Substance Use: Smokes marijuana daily and has for the past 46 years to manage anxiety, depression, sleep, and appetite. - Medication Adherence: Patient uses a 7 -day pill turnaround planner to manage her medications. Results - TSH: 0.6 Patient was informed and verbally consented to the use of an ambient scribe for clinic note documentation during this visit. [facility] Medical History Obesity (BMI 30.0-34.9) Hypertension GERD without esophagitis Anxiety Depression Thyroid disease Hyperlipidemia Personal history of nicotine dependence DOMINIK (stress urinary incontinence, female) Urge incontinence Surgical History History of colonoscopy (~05/10/17) History of tubal ligation Family History (Updated 05/28/25 @ 11:19 by Idalia Chavez MA) Mother No problems noted. Father No problems noted. Other Mental health disorder Social History Housing: Apartment Alcohol intake: never Patient Tobacco Use Status: Former Tobacco user Years Smoked: (onset 18, 1-3ppd x 44yrs, 75pyh, quit 10/2022) e-Cigarette/Vaping Use: Currently Using Substance Use Type: Marijuana service: No Current occupational status: retired Cognitive needs: No Hearing needs: No Vision needs: No Questionnaire Thrive Questionnaire Date Thrive assessed: 02/18/25 DEEPTI-7 AMB Questionnaire DEEPTI-7 Date DEEPTI - 7 assessed: 02/18/25 Source: Developed by Drs. Michael Dhillon, Swetha Allen, Agustin Richmond and colleagues, with an educational roxi from [employer] Review of Systems Narrative Review of Systems - Constitutional: Reports feeling more sleepy. - Neurological: Reports sabianism headaches. - Musculoskeletal: Reports lower back ache. - Abdominal: Reports a moving sensation in her side, which has occurred bilaterally. Physical exam (Primary Care) Vital Signs: Last Vital Signs Temp 97.4 F 05/28/25 11:02 Pulse 86 05/28/25 11:02 BP 128/80 05/28/25 11:02 Pulse Ox 98 05/28/25 11:02 Oxygen Delivery Method Room Air 05/28/25 11:02 BMI result Body Mass Index 32.2 GENERAL Well developed, obese, in no apparent distress HEENT Head-Normocephalic Neck- Supple, No lymphadenopathy, thyroid WNL RESPIRATORY Normal I:E, Clear to auscultation CARDIOVASCULAR Regular, rate and rhythm, No murmurs or rubs MUSCULOSKELETAL Back- nontender Joints- no pain swelling or deformity NEUROLOGICAL Gait normal PSYCHIATRIC Oriented to person, place and time Mood and affect WNL Appearance WNL Speech WNL Thought processes WNL Tobacco/Smoking Status: Tobacco use Status Tobacco use date assessed 05/28/25 05/28/25 11:04 Patient Tobacco Use Status Former Tobacco user 05/28/25 11:04 e-Cigarette/Vaping Use Currently Using 05/28/25 11:04 Thrive Assessment: Date of Thrive Assessment Date Thrive assessed 02/18/25 05/28/25 11:04 Narrative Physical Exam - Vitals: Blood pressure is good. Coding Level of Care Code Established Pt Est Pt Level 4 (17576) Established Pt Add On Problem Visit Only Patient Type Established Diagnoses Primary hypertension I10 Hypertension type: primary hypertension Thyroid disease E07.9 Personal history of nicotine dependence Z87.891 Low back pain M54.50 Time Spent (min) 30 Comment Time spent on lab review, H&P, Patient education and orders. Assessment & Plan Assessment & Plan (1) Hypertension: Comment: BP today was 128/80 Code(s): I10 - Essential (primary) hypertension Category: Medical Qualifiers: Hypertension type: primary hypertension Qualified Code(s): I10 - Essential (primary) hypertension Plan: Controlled. Patient will continue current medications. Will monitor. Patient will follow up in 4 months (2) Thyroid disease: Comment: TSH was 0.6 Code(s): E07.9 - Disorder of thyroid, unspecified Category: Medical Plan: Controlled. Will check TSH before next visit. Patient will continue current medications. Will monitor. Patient will follow up in 4 months (3) Personal history of nicotine dependence: Comment: (onset 18, 1-3ppd x 44yrs, 75pyh, quit 10/2022) Code(s): Z87.891 - Personal history of nicotine dependence Category: Medical Plan: Patient has quit. No smoking since February 27 (4) Low back pain: Code(s): M54.50 - Low back pain, unspecified Plan: Will watch for now. Will continue Ibuprofen as needed. Plan Plan Patient was informed and verbally consented to the use of an ambient scribe for clinic note documentation during this visit. 1. Hypothyroidism The patient's hypothyroidism is well-managed, with her recent TSH level improving to 0.6 from a previous 0.2. The plan is to continue the current dose of Synthroid and recheck TSH levels in four months, prior to her next follow-up appointment. If her thyroid levels remain stable, the follow-up interval may be extended to six months. 2. Tobacco Use Disorder, In Remission The patient has successfully quit smoking cigarettes since February 27 with the use of Chantix. She was encouraged for her progress and advised to continue her current regimen. 3. Cannabis Use The patient continues to smoke marijuana daily for self-reported management of anxiety, depression, and sleep. A discussion was had regarding the pulmonary risks associated with smoking and alternative forms like edibles were suggested, though the patient prefers the effects of smoking. 4. Low Back Pain The patient reports intermittent low back pain that is well-controlled with as- needed ibuprofen. She will continue her current management strategy. Discussion Notes I reviewed the patient's recent TSH lab result, which was 0.6, and explained that this is a good level, showing improvement from her previous result of 0.2. I explained the function of TSH and why we will keep her on her current Synthroid dose. I congratulated her on quitting cigarettes and supported her continued use of Chantix. We discussed her marijuana use, including the lung health risks of smoking and the availability of alternative forms like gummies. We confirmed her upcoming appointments for a lung cancer screening and a Pap smear. We agreed to a follow-up in four months, at which time we will recheck her thyroid level. I advised that if her labs remain stable, we can then extend follow-up visits to every six months. Patient Instructions - Continue taking your Synthroid medication as currently prescribed. - Continue taking Chantix to help you remain abstinent from cigarettes. - Go for your lung screening study that is scheduled for tomorrow. - Keep your appointment for a Pap smear in July. - You may continue to use ibuprofen for back pain and Tylenol for headaches as needed. - Please schedule a follow-up appointment in four months. - You will need to have blood work to check your thyroid level one or two days before your next visit. Orders: Orders TSH reflex Free T4 Today E07.9 - Disorder of thyroid, unspecified
== END 2025-05-28 11:38 | disposition home or self-care (01) ==
LOC: HO.HMCHD 10:55
PROVIDERS: PCP Physician Assistant Medical; Visit Provider Physician Assistant Medical
DX: I10 Essential (primary) hypertension (principal); E07.9 Disorder of thyroid, unspecified; Z87.891 Personal history of nicotine dependence; M54.50 Low back pain, unspecified

== ENCOUNTER → 2025-05-28 10:55 | Outpatient (BNVA) | payer OTHER, SELFPAY | PROVIDERS: PCP Physician Assistant Medical; Visit Provider Physician Assistant Medical | DX: I10 Essential (primary) hypertension (principal); E03.9 Hypothyroidism, unspecified; F41.9 Anxiety disorder, unspecified; F32.A Depression, unspecified; G47.00 Insomnia, unspecified; E07.9 Disorder of thyroid, unspecified; Z79.890 Hormone replacement therapy; M54.50 Low back pain, unspecified; F12.90 Cannabis use, unspecified, uncomplicated; Z87.891 Personal history of nicotine dependence; Z79.899 Other long term (current) drug therapy | CPT/HCPCS: 99212 ==

== ENCOUNTER 2025-05-29 11:28 | Outpatient (REF) | payer OTHER, SELFPAY ==
--- NOTE | ~2025-05-29 | CT_ITS ---
EXAMINATION: CT LUNG SCREENING HISTORY: Z87.891 - Personal history of nicotine dependence TECHNIQUE: Low dose axial images were obtained from the sternal notch to upper abdomen without IV contrast per standard departmental protocol. Sagittal and coronal reformatted images were also obtained and reviewed. One or more of the following techniques was used for dose reduction: Automated exposure control, adjustment of the mA and/or kV according to patient size, use of iterative reconstruction technique. DLP: 60 mGy-cm COMPARISON: Previous chest CT April 2024 FINDINGS: Lung nodules: Mild paraseptal emphysema. Mild biapical pleural and parenchymal scarring. Stable small pulmonary nodules. Largest pulmonary nodules measure 4 mm in the right lower lobe axial image 93 series 4, and 5 mm in the left upper lobe axial image 77 series 4 and left lower lobe axial image 98 series 4. There is a 4 mm groundglass attenuation left lower lobe nodule axial image 91 series 4 that is stable. There is a small calcified 3 mm nodule at the right lung apex that is stable. Coronary Calcification: moderate. Normal heart size. No pericardial effusion. Aortic Arch Calcification: mild. Normal caliber thoracic aorta. Additional Chest Findings: There is no pleural or pericardial effusion. No enlarged mediastinal , hilar or axillary lymphadenopathy is identified. No thyroid nodule. No chest wall mass. Visualized upper abdomen: The visualized portions of the liver, spleen, and adrenals have an unremarkable unenhanced appearance. Degenerative changes of the spine. Slight loss of height of the superior endplate of the T8, T9 and T10 vertebral bodies questionable for mild compression fractures versus Schmorl's nodes unchanged. CT/CT lung screening IMPRESSION: Stable pulmonary nodules from April 2024. No new or enlarging pulmonary nodules. LUNG-RADS ASSESSMENT: Lung-RADS 2: Benign MANAGEMENT: Continue annual screening with LDCT in 12 months Category S: N/A Electronically signed by: Jamila Paul MD 05/29/2025 12:05 PM YAZMIN
== END 2025-05-29 11:29 | disposition home or self-care (01) ==
LOC: HO.CT 11:28
PROVIDERS: PCP Physician Assistant Medical; Visit Provider Physician Assistant Medical
DX: Z87.891 Personal history of nicotine dependence (principal)
CPT/HCPCS: 71271

== ENCOUNTER → 2025-05-29 11:29 | Outpatient (BNV) | payer OTHER, SELFPAY | PROVIDERS: PCP Physician Assistant Medical; Visit Provider Radiology Diagnostic Radiology | DX: Z87.891 Personal history of nicotine dependence (principal) | CPT/HCPCS: 71271 ==